=== PATIENT | female | born 1965 | race Caucasian/White ===

== ENCOUNTER 2016-08-13 12:22 | Observation (INO) | payer MEDICARE, OTHER ==
[2016-08-13] MEDS ORDERED: KETOROLAC 30 MG/ML 1 ML VIAL IVP STA (12:58)
--- NOTE | 2016-08-13 13:14 | ED ---
Chest Pain HPI - General Chief Complaint: Chest Pain Stated Complaint: Chest Pain Time Seen by Provider: 08/13/16 12:41 Source: patient, RN notes reviewed Mode of arrival: wheelchair Limitations: no limitations - History of Present Illness Initial Comments: This is a 51-year-old female with a history of PVCs who presents with complaints of symptoms of been going on for about 2 weeks getting progressively worse. She states she initially was expressing flashes dizziness frontal like she might pass out she thought was related to her change of . She states however she started developing anterior chest pain some pain to her back neck and jaw and now pain in her left arm at times. She's had sweating with it last night and this morning. The pain she has is achy mid sternal moderate in severity. Currently she is pain-free except for the mid sternum where she has some reproducible pain to palpation which is different than the above. Physical slight cough she is a smoker though she is trying to quit she smokes 2 cigarettes a day at this time. She has no known heart or lung disease or is a family history of heart disease and hypertension. We did have a long conversation regarding risks and benefits of stopping smoking the whole episode lasted 3.1 minutes MD Complaint: chest pain, other - Related Data Home Medications Medication Instructions Recorded Confirmed HYDROcodone/APAP 7.5-325MG [[place] 1 tab PO Q6HR PRN 09/25/13 08/13/16 7.5] Atenolol 25 mg PO HS 06/09/16 08/13/16 Ergocalciferol [Vitamin D2] 50,000 unit PO TH 08/13/16 08/13/16 Gabapentin [Neurontin] 100 mg PO HS 08/13/16 08/13/16 Allergies Allergy/AdvReac Type Severity Reaction Status Date / Time No Known Allergies Allergy Verified 08/13/16 13:08 Review of Systems ROS Statement: Those systems with pertinent positive or pertinent negative responses have been documented in the HPI. ROS Other: All systems not noted in ROS Statement are negative. EKG Findings - EKG Results: EKG: interpreted by WALTER MIGUEL, sinus rhythm, normal axis, normal QRS, normal ST/ T, no acute changes (Sinus rhythm with a rate of 78. Interval 162 QRS duration 80 daily since QTC of 34/[address]-T wave changes.) Past Medical History Past Medical History: Fibromyalgia, GERD/Reflux, GI Bleed Additional Past Medical History / Comment(s): Recent heartburn and blood to stool, hx of colon polyps. Hx PVCs and palpatations. History of Any Multi-Drug Resistant Organisms: None Reported Past Surgical History: Back Surgery, Cholecystectomy, Orthopedic Surgery, Uterine Ablation Additional Past Surgical History / Comment(s): Hx colonoscopy. Back surgery x 2 with cage, plates, screws. Novasure procedure. Past Anesthesia/Blood Transfusion Reactions: Postoperative Nausea & Vomiting ( PONV) Past Psychological History: Anxiety Smoking Status: Current every day smoker Past Alcohol Use History: None Reported Additional Past Alcohol Use History / Comment(s): Started smoking 1982 to current. Smokes less that 1/2 ppd. Past Drug Use History: None Reported - Past Family History Father Family Medical History: Cancer Additional Family Medical History / Comment(s): Prostate and lung CA. General Exam - General Exam Comments Initial Comments: This is a well up well-nourished awake alert oriented history female Limitations: no limitations General appearance: alert, anxious Head exam: Present: atraumatic, normocephalic, normal inspection Eye exam: Present: normal appearance, PERRL, EOMI. Absent: scleral icterus, conjunctival injection, periorbital swelling ENT exam: Present: normal exam, mucous membranes moist Neck exam: Present: normal inspection. Absent: tenderness, meningismus, lymphadenopathy Respiratory exam: Present: normal lung sounds bilaterally, chest wall tenderness. Absent: respiratory distress, wheezes, rales, rhonchi, stridor Cardiovascular Exam: Present: regular rate, normal rhythm, normal heart sounds. Absent: systolic murmur, diastolic murmur, rubs, gallop, clicks GI/Abdominal exam: Present: soft, normal bowel sounds. Absent: distended, tenderness, guarding, rebound, rigid Extremities exam: Present: normal inspection, full ROM, normal capillary refill. Absent: tenderness, pedal edema, joint swelling, calf tenderness Back exam: Present: normal inspection Neurological exam: Present: alert, oriented X3, CN II-XII intact Psychiatric exam: Present: normal affect, normal mood Skin exam: Present: warm, dry, intact, normal color. 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 Patient has had recurrent pain she'll be admitted for evaluation by cardiology. Disposition Clinical Impression: Atypical chest pain, Chest pain, Unstable angina pectoris Disposition: ADMITTED IP TO THIS HOSP Condition: Stable
[2016-08-13 13:21] LABS: Basophils # (A) 0.1 k/uL (0-0.2); Basophils % (A) 1 %; CH 31.6; CHCM 34.9; Eosinophils # (A) 0.2 k/uL (0-0.7); Eosinophils % (A) 2 %; HCT 46.3 % (34.0-46.0); HDW 2.51; HGB 15.9 gm/dL (11.4-16.0); Luc # (Auto) 0.28; Luc % (Auto) 3; Lymphocytes # (A) 2.5 k/uL (1.0-4.8); Lymphocytes % (A) 28 %; MCH 31.2 pg (25.0-35.0); MCHC 34.3 g/dL (31.0-37.0); Mean Platelet Volume 6.9; Monocytes # (A) 0.5 k/uL (0-1.0); Monocytes % (A) 6 %; Neutrophils # (A) 5.3 k/uL (1.3-7.7); Neutrophils % (A) 60 %; RBC 5.09 m/uL (3.80-5.40); RDW 12.5 % (11.5-15.5); WBC 8.9 k/uL (3.8-10.6); WBC (Perox) 8.75
[2016-08-13 13:31] LABS: ALT 25 U/L (9-52); AST 17 U/L (14-36); Alkaline Phosphatase 73 U/L (38-126); Amylase 55 U/L (30-110); Anion Gap 10 mmol/L; Blood Urea Nitrogen 20 mg/dL (7-17); Calcium 9.8 mg/dL (8.4-10.2); Carbon Dioxide 26 mmol/L (22-30); Chloride 103 mmol/L (98-107); Glucose 104 mg/dL (74-99); Magnesium 1.9 mg/dL (1.6-2.3); Non-African American GFR(MDRD) >60 (>60 ml/min/1.73 sqM); Potassium 4.4 mmol/L (3.5-5.1); Sodium 139 mmol/L (137-145); Total Bilirubin 0.7 mg/dL (0.2-1.3); Total Protein 7.7 g/dL (6.3-8.2)
[2016-08-13 13:32] LABS: Partial Thromboplastin Time 23.6 sec (22.0-30.0); Prothrombin Time 10.5 sec (9.0-12.0)
[2016-08-13 13:45] LABS: Creatine Kinase 77 U/L (30-135)
--- NOTE | 2016-08-13 13:50 | XR ---
EXAMINATION TYPE: XR chest 2V DATE OF EXAM: 08/13/2016 1:27 PM COMPARISON: 12/05/2013 INDICATION: Chest pain TECHNIQUE: Frontal and lateral views reveal the chest were obtained. The frontal chest is labeled dec ubitus. FINDINGS: The heart size is normal. The pulmonary vasculature is normal. The lungs are clear. No free-flowing pleural effusions are identified. IMPRESSION: 1. No acute pulmonary process.
[2016-08-13 13:57] LABS: Creatine Kinase MB 0.4 ng/mL (0.0-2.4); Troponin I <0.012 ng/mL (0.000-0.034)
[2016-08-13] MEDS ORDERED: NITROGLYCERIN SL TABS 0.4 MG TAB SUBLINGUAL PRN (16:34)
[2016-08-13] MEDS ORDERED: HEPARIN SODIUM,PORCINE 5,000 UNIT/ML 1 ML VIAL IV ONE (16:34)
[2016-08-13] MEDS ORDERED: SODIUM CHLORIDE 0.9% 1,000 ML IV SCH (16:45)
[2016-08-13] MEDS ORDERED: HEPARIN SODIUM,PORCINE/D5W PMX 25,000 UNIT in DEXTROSE/WATER 1 500ML.BAG IV SCH (16:45)
[2016-08-13] MEDS: HYDROcodone/APAP 7.5-325MG 1 EACH TAB PO PRN ×2 (17:28→22:43)
[2016-08-13] MEDS ORDERED: ERGOCALCIFEROL 50,000 UNIT CAP PO SCH (18:00)
[2016-08-13] MEDS ORDERED: NICOTINE 21MG/24HR PATCH TRANSDERM STA (19:42)
[2016-08-13 20:41] LABS: Creatine Kinase 69 U/L (30-135)
[2016-08-13 20:54] LABS: Creatine Kinase MB 0.3 ng/mL (0.0-2.4); Troponin I <0.012 ng/mL (0.000-0.034)
[2016-08-13] MEDS ORDERED: GABAPENTIN 100 MG CAP PO SCH (21:00)
[2016-08-13] MEDS ORDERED: ATENOLOL 25 MG TAB PO SCH (21:00)
[2016-08-13] MEDS: NITROGLYCERIN OINT 1 INCH/GM PACKET TOPICAL SCH ×2 (21:12→21:13)
[2016-08-14 04:55] LABS: Creatine Kinase 59 U/L (30-135); Creatine Kinase MB 0.3 ng/mL (0.0-2.4); Troponin I <0.012 ng/mL (0.000-0.034)
[2016-08-14] MEDS ORDERED: HEPARIN SODIUM,PORCINE 5,000 UNIT/ML 1 ML VIAL IV PRN (05:24)
[2016-08-14] MEDS: NITROGLYCERIN OINT 1 INCH/GM PACKET TOPICAL SCH ×2 (05:42→13:38)
[2016-08-14 06:17] LABS: Cholesterol 149 mg/dL (<200); HDL Cholesterol 48 mg/dL (40-60); Triglycerides 168 mg/dL (<150)
[2016-08-14] MEDS: HYDROcodone/APAP 7.5-325MG 1 EACH TAB PO PRN (07:36)
[2016-08-14] MEDS ORDERED: ASPIRIN 325 MG TAB PO SCH (09:00)
--- NOTE | 2016-08-14 11:39 | CONS ---
DATE OF CONSULTATION: This is a 51-year-old lady a patient who sees Dr. Torres in the outpatient setting, came into the hospital with episodes of what she described as a sensation of some warm feeling all over with some pain that started in the left anterior chest and radiated to the back sharp in nature, lasted a few seconds. The quality of the pain is very atypical. She also feels that she is having some menopausal symptoms and has been having night sweats, sometimes hot flashes. She is also trying to quit smoking at the same time. She was known to have some isolated PVCs on evaluation by Dr. Torres placed on atenolol and this has been stable. However, in the last 5 days she has noted an increase in sensation of palpitations. She feels as if her heart is racing fast, spontaneously that lasted a few minutes and then goes away. Her pain in the chest is very sharp in nature, atypical, some radiation to the left scapular area. There was no diaphoresis. She had a Lexiscan stress test that was performed recently and a 24-hour DCG that revealed PVCs. Lexiscan stress test did not reveal any ischemia. This was performed in May of 2016. Past medical history remarkable for: 1. Palpitations, PVCs, for which she is on atenolol. 2. Atypical chest pain with a negative stress test performed within the last 3 to 4 months. She also had an echocardiogram that was normal with mild concentric LVH and normal PA pressures. Medications at home include hydrocodone, gabapentin and vitamin supplements. ALLERGIES: None. REVIEW OF SYSTEMS: Unremarkable other than above-mentioned facts. On examination, blood pressure is 110/70, pulse rate 70 per minute, regular. HEENT: Unremarkable. Fundus was not examined by me. Neck is supple. No JVD. I do not hear a carotid bruit. There is no thyromegaly. Heart exam reveals S1 and S2 heard normally without a rub, murmur or gallop. Lungs are clear. ABDOMEN: Soft, nontender. Lower extremities reveal normal pulses. No edema. Central nervous system is normal. EKG revealed sinus mechanism. No acute changes. Laboratory data revealed unremarkable troponins. IMPRESSION: 1. Palpitations with increase in frequency in the last 4 to 5 days. Patient has a history of premature ventricular contractions. No arrhythmia was seen on the monitor today. 2. Atypical chest pain with a negative stress test within the last 3 to 4 months. RECOMMENDATIONS: I am recommending that we discontinue IV, put a Hep-Lock, increase activity, and she can be discharged with a 2-week event monitor and see Dr. Melissa Bailey after that in the office. I discussed my thoughts in detail with the patient. Thank you very much for the consult.
[2016-08-14 11:42] VITALS: BP 103/59; PULSE 68; RESP 18; TEMP 98
--- NOTE | 2016-08-15 10:18 | HP ---
DATE OF ADMISSION: History and physical and discharge summary REASON FOR ADMISSION: Palpitation and chest pain. HISTORY OF PRESENT ILLNESS: This is a 51-year-old female is known to Dr. Torres, has had some issues in regards to palpitations. Apparently underwent multiple studies and was noted to have PVCs. Thereafter was placed on atenolol 25 mg and has been stable for the last few months. However, over the last few weeks, patient has been noting to have multiple episodes of palpitations. These palpitations were initially associated with episodes of sweating and diffuse tiredness, thereafter. Hence, the patient thought these were postmenopausal symptoms and ignored them. This has been happening over the last 2 weeks. Last night patient apparently has had an episode while she was cleaning where she noted palpitations initially and thereafter, noted diaphoresis and chest pressure diffusely. The patient thereafter came to the hospital for ongoing care. Patient underwent a Lexiscan in June, which was negative for reversible ischemia. EKG did not reveal ST-T wave changes. At the time of my evaluation, patient states that she is very anxious, has had an issue with tremors all her life. States that her anxiety has something to do with her current issue as well. Past medical history includes: 1. Ventricular ectopy. 2. Anxiety. 3. Essential tremor. 4. Peripheral neuropathy. 5. Chronic pain. MEDICATIONS: 1. Hydrocodone. 2. Gabapentin. 3. Atenolol. 4. Vitamin supplements. ALLERGIES: None. In regards to medications, they were reviewed and appropriately reconciled. REVIEW OF SYSTEMS: Fourteen-point review of systems was done; none pertinent other than mentioned above. SOCIAL HISTORY: Remote history of smoking. Denies having any illicit drug use or alcohol use. FAMILY HISTORY: Premature heart disease is reported in the family. PAST SURGICAL HISTORY: None reported. PHYSICAL EXAMINATION: VITAL SIGNS: Temperature is 98, heart rate is 68, respiratory rate is 18, blood pressure 102/59. Saturating 97% on room air. GENERALLY: Patient appears to be alert, oriented x3. HEENT: The pupils are equal and reactive to light and accommodation. HEART: S1, S2 present. No murmur appreciated. LUNGS: Good air entry. No wheezing or rhonchi noted. ABDOMINAL EXAM: Soft, nontender, no organomegaly appreciated. GENITOURINARY: No Cortes in place. EXTREMITIES: Pulses can be palpated distally. Denies any tenderness on gross palpation. SKIN: On a gross skin exam does not appear to have any purpura or any skin rashes that were noted. NEUROLOGICALLY: No focal motor or sensory deficits noted. There is essential tremor that is appreciated bilaterally. Laboratory data includes hemoglobin 15.9, hematocrit 46.3, platelets of 274. D-dimer is 0.18. Sodium 139, potassium 4.4, chloride 102, bicarb 26, BUN 20, creatinine 0.61. Cardiac enzymes x3 were less than 0.012. TSH was 2.3. ASSESSMENT AND PLAN: 1. Atypical chest pain. 2. Palpitations. 3. History of ventricular ectopy. 4. Anxiety. 5. Remote history of tobacco use. 6. Essential tremor. PLAN: Patient was made to ambulate, states that she is improved. Patient's heart rate during my examination is ranging anywhere from 70s to high 80s per minute. After discussion patient's atenolol will be increased to 25 mg b.i.d. Patient is recommended to undergo a two-week monitor by the scagliola mechanic, Patient is to follow with Dr. Torres. In regards to her postmenopausal symptoms, I did discuss different options including even hormone replacement for short duration or medications like Effexor which are off label. However, this requires monitoring and patient is to make this decision following with Dr. Carmela Villaseñor. Follow up appointments are with Dr. Torres and Dr. Carmela Villaseñor. Medication changes were increase of atenolol to 25 mg p.o. b.i.d. Patient is discharged home in a stable condition. He is to follow up for a Holter monitor.
== END 2016-08-14 16:57 | disposition home or self-care (01) ==
LOC: EC 12:22 → 3OBS 16:38
PROVIDERS: ADMIT Internal Medicine; ATTEND Internal Medicine
DX: R07.89 Other chest pain (principal); R61 Generalized hyperhidrosis; I49.3 Ventricular premature depolarization; Z79.899 Other long term (current) drug therapy; M79.7 Fibromyalgia; F41.9 Anxiety disorder, unspecified; F17.210 Nicotine dependence, cigarettes, uncomplicated; G25.0 Essential tremor; G89.29 Other chronic pain; G62.9 Polyneuropathy, unspecified; Z82.49 Family history of ischemic heart disease and other diseases of the circulatory system
CPT/HCPCS: 96376; 96375; 96366 ×2; 96365; 99285; 36415; 93005; 85379; 83880; 80061; 80053; 84443; 82150; 82550 ×2; 82553 ×2; 83690; 83735; 84484 ×2; 85025; 85610; 85730 ×2; 71020; G0378 ×2; S4990; J1644 ×3; J1885

== ENCOUNTER 2016-08-22 06:55 | Emergency (ER) | payer MEDICARE, OTHER ==
--- NOTE | 2016-08-22 08:09 | ED ---
Female Urogenital HPI - General Chief complaint: Urogenital Stated complaint: urogenital Time Seen by Provider: 08/22/16 07:40 Source: patient, RN notes reviewed Mode of arrival: ambulatory Limitations: no limitations - History of Present Illness Initial comments: This is a 51-year-old female who presents with complaints of hot flashes the been continuous since about 11:00 last evening which lasted till 4 5:00 this morning also urinary frequency she's gone multiple times today. She also now complains some right lower quadrant abdominal pain that feels sharp and achy in nature and is 5-6/10 severity. She does have a history of ovarian cyst she is scheduled for a pelvic ultrasound and abdominal ultrasound this coming week. She states she would sweat a lot last evening and then had sweats and then feel chilled. She denies any earache sore throat rhinorrhea no cough or phlegm production. She has had her gallbladder removed but still has her appendix. Additionally she states she was just in the hospital this past week prior to her discharge for the workup of chest pain she complained of urinary odor and she was given a prescription of Bactrim for a total of 6 pills which she completed 5 days ago. She denies any burning with urination just frequency. Patient also complains of pain going from her right groin down to the anterior proximal right thigh that is intermittent. MD Complaint: other - Related Data Home Medications Medication Instructions Recorded Confirmed HYDROcodone/APAP 7.5-325MG [[place] 1 tab PO Q6HR PRN 09/25/13 08/22/16 7.5-325] Ergocalciferol [Vitamin D2 50,000 unit PO TH 08/13/16 08/22/16 (DRISDOL)] Gabapentin [Neurontin] 100 mg PO HS 08/13/16 08/22/16 Previous Rx's Medication Instructions Recorded Atenolol 25 mg PO BID #30 tablet 08/14/16 Cephalexin [Keflex] 500 mg PO Q6HR #40 cap 08/22/16 Ibuprofen [Motrin] 600 mg PO Q6HR PRN #20 tab 08/22/16 Oxybutynin Chloride [Ditropan] 2.5 mg PO BID #10 tab 08/22/16 Allergies Allergy/AdvReac Type Severity Reaction Status Date / Time No Known Allergies Allergy Verified 08/22/16 07:05 Review of Systems ROS Statement: Those systems with pertinent positive or pertinent negative responses have been documented in the HPI. ROS Other: All systems not noted in ROS Statement are negative. Past Medical History Past Medical History: Fibromyalgia, GERD/Reflux, GI Bleed, Hypertension Additional Past Medical History / Comment(s): hx of colon polyps. Hx PVCs and palpatations takes atenolol".kidney stones, tremors,anxiety ovarian cysts History of Any Multi-Drug Resistant Organisms: None Reported Past Surgical History: Back Surgery, Cholecystectomy, Orthopedic Surgery, Tonsillectomy, Uterine Ablation Additional Past Surgical History / Comment(s): Hx egd/colonoscopy.tubes in ears as child, Back surgery x 2 with cage, plates, screws. Novasure endometrial ablation Past Anesthesia/Blood Transfusion Reactions: Postoperative Nausea & Vomiting ( PONV) Past Psychological History: Anxiety Additional Psychological History / Comment(s): pt lives in house along w/ daughter and 2 cats. has 6 steps into home.no outside services. uses a cane as needed. pt used to do factory work but currently on disability. Smoking Status: Former smoker Past Alcohol Use History: None Reported Additional Past Alcohol Use History / Comment(s): Started smoking 1980(age 16) to current. was smoking 1ppd has decreased to 3-4 cig per day. Past Drug Use History: None Reported - Past Family History Father Family Medical History: Cancer, Hypertension Additional Family Medical History / Comment(s): Prostate and lung CA. Mother Family Medical History: COPD, CVA/TIA Additional Family Medical History / Comment(s): ms, "heart problems" General Exam - General Exam Comments Initial Comments: This is a well-developed well-nourished awake alert oriented history female Limitations: no limitations General appearance: alert, in no apparent distress Head exam: Present: atraumatic, normocephalic, normal inspection Eye exam: Present: normal appearance, PERRL, EOMI. Absent: scleral icterus, conjunctival injection, periorbital swelling ENT exam: Present: normal exam, mucous membranes moist Neck exam: Present: normal inspection. Absent: tenderness, meningismus, lymphadenopathy Respiratory exam: Present: normal lung sounds bilaterally. Absent: respiratory distress, wheezes, rales, rhonchi, stridor Cardiovascular Exam: Present: regular rate, normal rhythm, normal heart sounds. Absent: systolic murmur, diastolic murmur, rubs, gallop, clicks GI/Abdominal exam: Present: soft, tenderness (Mild right lower quadrant tenderness palpation at McBurney's point no guarding or rebound.), normal bowel sounds. Absent: distended, guarding, rebound, rigid Rectal exam: Present: deferred Extremities exam: Present: normal inspection, full ROM, normal capillary refill , other (Examination of the inguinal region reveals no tenderness on palpation) . Absent: tenderness, pedal edema, joint swelling, calf tenderness Back exam: Present: normal inspection Neurological exam: Present: alert, oriented X3, CN II-XII intact Psychiatric exam: Present: normal affect, normal mood Skin exam: Present: warm, dry, intact, normal color. Absent: rash Course Vital Signs 08/22/16 08/22/16 07:01 07:41 Temperature 97.6 F 98.4 F Pulse Rate 87 71 Respiratory 18 18 Rate Blood Pressure 132/89 O2 Sat by Pulse 97 96 Oximetry Medical Decision Making - Medical Decision Making I did discuss findings with the patient she does have some symptoms consistent with menopause also the urinary frequency there is no evidence of a UTI at this time though cultures will be sent this may represent an overactive bladder. - Lab Data Result diagrams: 08/22/16 07:38 08/22/16 07:38 Lab Results 08/22/16 08/22/16 08/22/16 Range/Units 07:38 07:38 07:38 WBC 7.6 (3.8-10.6) k/uL RBC 4.69 (3.80-5.40) m/uL Hgb 14.8 (11.4-16.0) gm/dL Hct 43.2 (34.0-46.0) % MCV 92.0 (80.0-100.0) fL MCH 31.6 (25.0-35.0) pg MCHC 34.3 (31.0-37.0) g/dL RDW 12.6 (11.5-15.5) % Plt Count 267 (150-450) k/uL Neutrophils % 56 % Lymphocytes % 32 % Monocytes % 5 % Eosinophils % 3 % Basophils % 1 % Neutrophils # 4.2 (1.3-7.7) k/uL Lymphocytes # 2.4 (1.0-4.8) k/uL Monocytes # 0.3 (0-1.0) k/uL Eosinophils # 0.3 (0-0.7) k/uL Basophils # 0.1 (0-0.2) k/uL Sodium 140 (137-145) mmol/L Potassium 4.4 (3.5-5.1) mmol/L Chloride 106 (98-107) mmol/L Carbon Dioxide 26 (22-30) mmol/L Anion Gap 8 mmol/L BUN 15 (7-17) mg/dL Creatinine 0.56 (0.52-1.04) mg/dL Est GFR (MDRD) Af Amer >60 (>60 ml/min/1.73 sqM) Est GFR (MDRD) Non-Af >60 (>60 ml/min/1.73 sqM) Glucose 114 H (74-99) mg/dL Calcium 9.8 (8.4-10.2) mg/dL Magnesium 2.0 (1.6-2.3) mg/dL Total Bilirubin 0.6 (0.2-1.3) mg/dL AST 21 (14-36) U/L ALT 37 (9-52) U/L Alkaline Phosphatase 70 (38-126) U/L Total Protein 7.2 (6.3-8.2) g/dL Albumin 4.1 (3.5-5.0) g/dL Amylase 60 (30-110) U/L Lipase 91 (23-300) U/L TSH 3.250 (0.465-4.680) mIU/L Urine Color Yellow Urine Appearance Cloudy H (Clear) Urine pH 5.0 (5.0-8.0) Ur Specific [place] 1.014 (1.001-1.035) Urine Protein Negative (Negative) Urine Glucose (UA) Negative (Negative) Urine Ketones Negative (Negative) Urine Blood Small H (Negative) Urine Nitrite Negative (Negative) Urine Bilirubin Negative (Negative) Urine Urobilinogen <2.0 (<2.0) mg/dL Ur Leukocyte Esterase Moderate H (Negative) Urine RBC 1 (0-5) /hpf Urine WBC 4 (0-5) /hpf Ur Squamous Epith Cells 18 H (0-4) /hpf Urine Bacteria Rare H (None) /hpf Urine Mucus Occasional H (None) /hpf Urine HCG, Qual (Not Detectd) 08/22/16 Range/Units 07:38 WBC (3.8-10.6) k/uL RBC (3.80-5.40) m/uL Hgb (11.4-16.0) gm/dL Hct (34.0-46.0) % MCV (80.0-100.0) fL MCH (25.0-35.0) pg MCHC (31.0-37.0) g/dL RDW (11.5-15.5) % Plt Count (150-450) k/uL Neutrophils % % Lymphocytes % % Monocytes % % Eosinophils % % Basophils % % Neutrophils # (1.3-7.7) k/uL Lymphocytes # (1.0-4.8) k/uL Monocytes # (0-1.0) k/uL Eosinophils # (0-0.7) k/uL Basophils # (0-0.2) k/uL Sodium (137-145) mmol/L Potassium (3.5-5.1) mmol/L Chloride (98-107) mmol/L Carbon Dioxide (22-30) mmol/L Anion Gap mmol/L BUN (7-17) mg/dL Creatinine (0.52-1.04) mg/dL Est GFR (MDRD) Af Amer (>60 ml/min/1.73 sqM) Est GFR (MDRD) Non-Af (>60 ml/min/1.73 sqM) Glucose (74-99) mg/dL Calcium (8.4-10.2) mg/dL Magnesium (1.6-2.3) mg/dL Total Bilirubin (0.2-1.3) mg/dL AST (14-36) U/L ALT (9-52) U/L Alkaline Phosphatase (38-126) U/L Total Protein (6.3-8.2) g/dL Albumin (3.5-5.0) g/dL Amylase (30-110) U/L Lipase (23-300) U/L TSH (0.465-4.680) mIU/L Urine Color Urine Appearance (Clear) Urine pH (5.0-8.0) Ur Specific [place] (1.001-1.035) Urine Protein (Negative) Urine Glucose (UA) (Negative) Urine Ketones (Negative) Urine Blood (Negative) Urine Nitrite (Negative) Urine Bilirubin (Negative) Urine Urobilinogen (<2.0) mg/dL Ur Leukocyte Esterase (Negative) Urine RBC (0-5) /hpf Urine WBC (0-5) /hpf Ur Squamous Epith Cells (0-4) /hpf Urine Bacteria (None) /hpf Urine Mucus (None) /hpf Urine HCG, Qual Not Detected (Not Detectd) - Radiology Data Radiology results: report reviewed (I did review the imaging and reports no acute findings. There is evidence of kidney stones with no evidence of obstruction), image reviewed Disposition Clinical Impression: Urinary frequency, Perimenopause Disposition: HOME SELF-CARE Condition: Good Instructions: Dysuria (ED), Menopause (ED) Prescriptions: Cephalexin [Keflex] 500 mg PO Q6HR #40 cap Ibuprofen [Motrin] 600 mg PO Q6HR PRN #20 tab PRN Reason: Pain Oxybutynin Chloride [Ditropan] 2.5 mg PO BID #10 tab
[2016-08-22 08:12] VITALS: PULSE 71; RESP 18
[2016-08-22 08:24] LABS: Basophils # (A) 0.1 k/uL (0-0.2); Basophils % (A) 1 %; CH 31.9; CHCM 34.8; Eosinophils # (A) 0.3 k/uL (0-0.7); Eosinophils % (A) 3 %; HCT 43.2 % (34.0-46.0); HDW 2.51; HGB 14.8 gm/dL (11.4-16.0); Luc # (Auto) 0.25; Luc % (Auto) 3; Lymphocytes # (A) 2.4 k/uL (1.0-4.8); Lymphocytes % (A) 32 %; MCH 31.6 pg (25.0-35.0); MCHC 34.3 g/dL (31.0-37.0); Mean Platelet Volume 6.7; Monocytes # (A) 0.3 k/uL (0-1.0); Monocytes % (A) 5 %; Neutrophils # (A) 4.2 k/uL (1.3-7.7); Neutrophils % (A) 56 %; RBC 4.69 m/uL (3.80-5.40); RDW 12.6 % (11.5-15.5); WBC 7.6 k/uL (3.8-10.6); WBC (Perox) 7.16
[2016-08-22 08:28] LABS: ALT 37 U/L (9-52); AST 21 U/L (14-36); Alkaline Phosphatase 70 U/L (38-126); Amylase 60 U/L (30-110); Anion Gap 8 mmol/L; Blood Urea Nitrogen 15 mg/dL (7-17); Calcium 9.8 mg/dL (8.4-10.2); Carbon Dioxide 26 mmol/L (22-30); Chloride 106 mmol/L (98-107); Glucose 114 mg/dL (74-99); Non-African American GFR(MDRD) >60 (>60 ml/min/1.73 sqM); Potassium 4.4 mmol/L (3.5-5.1); Sodium 140 mmol/L (137-145); Total Bilirubin 0.6 mg/dL (0.2-1.3); Total Protein 7.2 g/dL (6.3-8.2)
[2016-08-22 08:45] LABS: Appearance,Urine Cloudy (Clear); Bacteria,Urine Rare /hpf; Bilirubin,Urine Negative (Negative); Glucose,Urine (UA) Negative (Negative); Ketones,Urine Negative (Negative); Leukocyte Esterase,Urine Moderate (Negative); Mucus,Urine Occasional /hpf; Nitrite,Urine Negative (Negative); Particle Count 11674; Protein,Urine Negative (Negative); RBC,Urine 1 /hpf (0-5); Specific Gravity,Urine 1.014 (1.001-1.035); Squamous Epithelial Cell,Urine 18 /hpf (0-4); UA Billing (MACRO vs. MICRO) MICRO; Urobilinogen,Urine <2.0 mg/dL (<2.0); WBC,Urine 4 /hpf (0-5)
--- NOTE | 2016-08-22 10:00 | XR ---
EXAMINATION TYPE: XR chest 2V DATE OF EXAM: 08/22/2016 8:28 AM COMPARISON: 08/13/2016 INDICATION: Abdomen pain short of breath TECHNIQUE: Single frontal view of the chest is obtained. FINDINGS: The heart size is normal. The pulmonary vasculature is normal. The lungs are clear. IMPRESSION: 1. No acute pulmonary process.
--- NOTE | 2016-08-22 10:01 | XR ---
EXAMINATION TYPE: XR KUB DATE OF EXAM: 08/22/2016 8:28 AM COMPARISON: NONE INDICATION: Abdomen pain TECHNIQUE: Single view abdomen FINDINGS: There is a nonspecific bowel gas pattern. Air is within small bowel loops as well as the colon. Psoas margins are normal. No organomegaly is present. Postsurgical changes are in the lower lumbar spine. No suspicious calcifications are evident. IMPRESSION: 1. Nonspecific abdomen.
--- NOTE | 2016-08-22 10:13 | CT ---
EXAMINATION TYPE: CT abdomen pelvis wo con DATE OF EXAM: 08/22/2016 9:18 AM COMPARISON: NONE INDICATION: Urgency and frequency in urination with hot flashes DLP: 552.9 mGycm, Automated exposure control for dose reduction was used. CONTRAST: None Study performed without Oral Contrast TECHNIQUE: Axial images were obtained from above the diaphragm to the pubic rami in the axial plane a t 5 mm thick sections. Reconstructed images are reviewed on the computer in the coronal plane. FINDINGS: Limited CT sections are obtained the lung bases. The lung bases are clear. CT ABDOMEN: Liver: Normal Spleen: Normal Pancreas: Normal Adrenal glands: The adrenal glands are normal. Gallbladder: Not identified Kidneys: No masses are evident. No hydronephrosis is present. No cysts are present. Multiple renal stones are present bilaterally. On the left the largest at the inferior pole measuring 0.7 cm. On th e right the largest is at the mid to inferior pole measuring 0.5 cm. Additional 0.3, 0.2 and 0.2 cm. Aorta: Normal Inferior vena cava: Normal. CT PELVIS: Loops of bowel within the abdomen and pelvis are normal. Studies without oral contrast limiting e valuation. Fecal debris is within the distal colon. Appendix: Normal as visualized. Urinary bladder: Normal. Genitourinary structures: Uterus is unremarkable. Adnexal regions are normal. No free fluid is within the pelvis. Osseous structures: No suspicious lytic or sclerotic lesions. Postsurgical changes are within the low er lumbar spine. IMPRESSIONS: 1. Nonobstructing bilateral renal stones
[2016-08-22 11:59] VITALS: BP 125/64; TEMP 97.9
== END 2016-08-22 12:03 | disposition home or self-care (01) ==
LOC: EC 06:55
DX: R35.0 Frequency of micturition (principal); N95.9 Unspecified menopausal and perimenopausal disorder; R10.30 Lower abdominal pain, unspecified; M79.651 Pain in right thigh; Z87.891 Personal history of nicotine dependence; Z79.899 Other long term (current) drug therapy; Z98.890 Other specified postprocedural states
CPT/HCPCS: 36415; 71020; 74000; 74176; 80053; 81001; 81025; 82150; 83690; 83735; 84443; 85025; 87086; 99284

== ENCOUNTER → 2016-08-25 | Outpatient (CLI) | payer MEDICARE, OTHER ==
--- NOTE | 2016-08-25 11:16 | US ---
EXAMINATION TYPE: US abdomen complete DATE OF EXAM: 08/25/2016 10:07 AM COMPARISON: CT 2017 CLINICAL HISTORY: R93.5 ABN COMPUTED TOMOGRAPHY OF ABD AND PELVIS. Renal stones, pelvic painOrder sta zoran possible liver cysts as patient stated had CT at [facility] in July 2016. EXAM MEASUREMENTS: Liver Length: 18.5 cm Gallbladder Wall: surgically removed CBD: 0.7 cm Spleen: 10.0 cm Right Kidney: 11.7 x 6.8 x 5.3 cm Left Kidney: 12.6 x 6.2 x 5.7 cm Pancreas: wnl Liver: wnl Gallbladder: surgically removed CBD: wnl Spleen: wnl Right Kidney: upper pole cyst = 1.5 x 1.3 x 1.4cm and lower pole shadowing calcification (cluster) = 0.8 x 0.8 x 0.7cm Left Kidney: lower pole shadowing calcification = 0.6 x 0.4 x 0.2cm Upper IVC: wnl Abd Aorta: wnl The liver is homogenous. The intrahepatic portion of the IVC and proximal abdominal aorta are within normal limits. Common bile duct is unremarkable. The visualized portions of the pancreas are homog enous. The spleen is unremarkable. Kidneys are symmetric and free of hydronephrosis. . Left-sided r enal calculus noted. Additional calculi lower pole right kidney. Simple cyst upper pole right kidney. IMPRESSION: 1. Bilateral nonobstructing nephrolithiasis. 2. Simple cyst right kidney.
--- NOTE | 2016-08-25 11:19 | US ---
EXAMINATION TYPE: US pelvic complete DATE OF EXAM: 08/25/2016 10:18 AM COMPARISON: CT 2016 at [facility] and CT July 2016 at [facility] CLINICAL HISTORY: R93.5 ABN COMPUTED TOMOGRAPHY OF ABD AND PELVIS. Left ovarian cyst, cysts in CX; en dometrial ablation 2012 TECHNIQUE: Transabdominal (TA) Date of LMP: 2012 EXAM MEASUREMENTS: Uterus: 9.2 x 5.8 x 3.7 cm Endometrial Stripe: 0.4 cm upper remnant Right Ovary: 2.3 x 1.5 x 1.6 cm Left Ovary: 3.1 x 2.0 x 2.2 cm 1. Uterus: Anteverted Multiple large Nabothian cysts in CX with largest = 1.4 x 1.6 x 1.3cm 2. Endometrium: possible small remnant upper endo noted as hyperechoic line 3. Right Ovary: small follicles 4. Left Ovary: small follicles Spectral, color and waveform Doppler imaging shows good arterial and venous flow within the ovaries ; there is no evidence for ovarian torsion. 5. Bilateral Adnexa: wnl 6. Posterior cul-de-sac: wnl IMPRESSION: 1. Small ovarian follicles. 2. Cervical nabothian cysts.
--- NOTE | 2016-08-27 13:35 | MM ---
Reason for exam: screening (asymptomatic). Last mammogram was performed 1 year ago. History: Family history of breast cancer in paternal aunt at age 61 and breast cancer in paternal cousin at age 42. Benign US left guided mammotome of the left breast, April 17, 2008. Physical Findings: A clinical breast exam by your physician is recommended on an annual basis and results should be correlated with mammographic findings. MG 3D Screening Mammo W/Cad Bilateral CC and MLO view(s) were taken. Prior study comparison: August 22, 2015, bilateral MG 3d diag mammo w/cad [place]. June 28, 2014, right breast MG diagnostic mammo RT w CAD. Finding: There is a typically benign 18 mm circumscribed oval mass located 4 cm from the nipple in the upper outer quadrant, middle position of the left breast. No significant changes in finding since August 22, 2015 and June 28, 2014. ASSESSMENT: Benign, BI-RAD 2 RECOMMENDATION: Routine screening mammogram of both breasts in 1 year.
== END ==
LOC: RADUSWWP 09:21
PROVIDERS: ATTEND Family Medicine
DX: Z12.31 Encounter for screening mammogram for malignant neoplasm of breast (principal); N88.8 Other specified noninflammatory disorders of cervix uteri; N20.0 Calculus of kidney; N28.1 Cyst of kidney, acquired
CPT/HCPCS: 77063; 76700; 76856; G0202

== ENCOUNTER → 2016-09-29 | Outpatient (CLI) | payer MEDICARE, OTHER ==
--- NOTE | 2016-09-29 15:23 | MR ---
EXAMINATION TYPE: MR brain wo/w con DATE OF EXAM: 09/29/2016 3:07 PM COMPARISON: Previous study dated 06/23/2014. HISTORY: Dizzy, headaches, Multihance 20 TECHNIQUE: Multiplanar, multiecho imaging of the brain was obtained with and without intravenous adm inistration of 17 mL intravenous MultiHance. FINDINGS: Midline structures are unremarkable. There is a normal craniocervical junction. Echoplanar diffusion imaging is normal. There are normal vascular flow voids. The orbits are normal. There is no evidence of a CP angle mass lesion. There are approximately 14 tiny, subcentimeter lesions in the deep white matter tracts of the cerebra l hemispheres. These increased slightly in number from the previous examination. There is no mass eff ect, midline shift or intracranial blood. Following intravenous administration of gadolinium, I do not see evidence of abnormal enhancement. There is no evidence of a CP angle mass lesion or intracanalicular acoustic schwannoma. IMPRESSION: SLIGHT INCREASE IN THE NUMBER OF SUBCENTIMETERS LESIONS IN THE DEEP WHITE MATTER TRACTS OF THE CEREBR AL HEMISPHERES. THIS AGE GROUP IT WOULD BE DIFFICULT TO EXCLUDE DEMYELINATION ALTHOUGH THE LESIONS AR E NOT ORTHOGONAL TO THE VENTRICLES.
== END | disposition home or self-care (01) ==
LOC: RADMRIMAIN 14:21
PROVIDERS: ATTEND Family Medicine
DX: R90.82 White matter disease, unspecified (principal); R42 Dizziness and giddiness
CPT/HCPCS: 70553; A9577

== ENCOUNTER → 2016-10-23 | Outpatient (CLI) | payer MEDICARE, OTHER ==
--- NOTE | 2016-10-23 10:24 | MM ---
Reason for exam: clinical finding. Last mammogram was performed 2 months ago. History: Patient is postmenopausal. Family history of breast cancer in paternal aunt at age 61 and breast cancer in paternal cousin at age 42. Benign US left guided mammotome of the left breast, April 17, 2008. Physical Findings: Nurse Summary: 2cm nodule in the left breast at 3 o'clock (nurse kp). MG 3D Diag Mammo W/Cad LT CC and MLO view(s) were taken of the left breast. Prior study comparison: August 25, 2016, bilateral MG 3d screening mammo w/cad. August 22, 2015, bilateral MG 3d diag mammo w/cad [facility]. August 22, 2015, bilateral US breast BILAT. The breast tissue is heterogeneously dense. This may lower the sensitivity of mammography. Finding: There is a 20 mm round mass in the outer quadrant, middle position of the left breast. Previous mammotome biopsy in the left breast. There is no discrete abnormality. These results were verbally communicated with the patient and result sheet given to the patient on 10/23/16. ASSESSMENT: Benign, BI-RAD 2 RECOMMENDATION: Return to routine screening mammogram schedule for both breasts. Back on schedule for August 2017. Manage patient on a clinical basis.
--- NOTE | 2016-10-23 10:25 | USB ---
Reason for exam: clinical finding. History: Patient is postmenopausal. Family history of breast cancer in paternal aunt at age 61 and breast cancer in paternal cousin at age 42. Benign US left guided mammotome of the left breast, April 17, 2008. US Breast LT Left breast ultrasound includes all four quadrants, the retroareolar region and axilla. Finding demonstrates a 2.1 x 1.6 x 1.9cm oval, cystic lesion at 2 o'clock at BB, 3cm from nipple and a 0.8 x 0.4 x 1.1cm oval, cystic lesion at 4 o'clock. These results were verbally communicated with the patient and result sheet given to the patient on 10/23/16. ASSESSMENT: Benign, BI-RAD 2 RECOMMENDATION: Return to routine screening mammogram schedule for both breasts. Back on schedule for August 2017. Manage patient on a clinical basis.
== END | disposition home or self-care (01) ==
LOC: RADMAMWWP 08:54
PROVIDERS: ATTEND Family Medicine
DX: N63 Unspecified lump in breast (principal)
CPT/HCPCS: 76641; G0206; G0279

== ENCOUNTER 2016-10-28 21:42 | Emergency (ER) | payer MEDICARE, OTHER ==
--- NOTE | 2016-10-28 22:33 | ED ---
General Adult HPI - General Stated complaint: Chest Pain Time Seen by Provider: 10/28/16 21:51 Source: RN notes reviewed, old records reviewed - History of Present Illness Initial comments: This is a 51-year-old female the ER for evaluation. Patient presents today for evaluation of chest pain left-sided chest pain feeling of left arm. Patient is currently going undergoing neurological [place] evaluation for similar symptoms. Symptoms started tonight. No shortness of breath or diaphoresis. Patient still currently having similar symptoms. No recent fevers cough or congestion, no travel history. - Related Data Home Medications Medication Instructions Recorded Confirmed HYDROcodone/APAP 7.5-325MG [[place] 1 tab PO TID 09/25/13 10/28/16 7.5-325] Aspirin 325 mg PO DAILY PRN 10/28/16 10/28/16 Cholestyramine (with Sugar) 4 gm PO BID PRN 10/28/16 10/28/16 [Cholestyramine Packet] Allergies Allergy/AdvReac Type Severity Reaction Status Date / Time No Known Allergies Allergy Verified 10/28/16 22:31 Review of Systems ROS Statement: Those systems with pertinent positive or pertinent negative responses have been documented in the HPI. ROS Other: All systems not noted in ROS Statement are negative. Past Medical History Past Medical History: Fibromyalgia, GERD/Reflux, GI Bleed, Hypertension Additional Past Medical History / Comment(s): hx of colon polyps. Hx PVCs and palpatations takes atenolol".kidney stones, tremors,anxiety ovarian cysts History of Any Multi-Drug Resistant Organisms: None Reported Past Surgical History: Back Surgery, Cholecystectomy, Orthopedic Surgery, Tonsillectomy, Uterine Ablation Additional Past Surgical History / Comment(s): Hx egd/colonoscopy.tubes in ears as child, Back surgery x 2 with cage, plates, screws. Novasure endometrial ablation Past Anesthesia/Blood Transfusion Reactions: Postoperative Nausea & Vomiting ( PONV) Past Psychological History: Anxiety Additional Psychological History / Comment(s): pt lives in house along w/ daughter and 2 cats. has 6 steps into home.no outside services. uses a cane as needed. pt used to do factory work but currently on disability. Smoking Status: Former smoker Past Alcohol Use History: None Reported Additional Past Alcohol Use History / Comment(s): Started smoking 1980(age 16) to current. was smoking 1ppd has decreased to 3-4 cig per day. Past Drug Use History: None Reported - Past Family History Father Family Medical History: Cancer, Hypertension Additional Family Medical History / Comment(s): Prostate and lung CA. Mother Family Medical History: COPD, CVA/TIA Additional Family Medical History / Comment(s): ms, "heart problems" General Exam General appearance: alert, in no apparent distress Head exam: Present: atraumatic, normocephalic, normal inspection Eye exam: Present: normal appearance, PERRL, EOMI. Absent: scleral icterus, conjunctival injection, periorbital swelling ENT exam: Present: normal exam, mucous membranes moist Neck exam: Present: normal inspection. Absent: tenderness, meningismus, lymphadenopathy Respiratory exam: Present: normal lung sounds bilaterally. Absent: respiratory distress, wheezes, rales, rhonchi, stridor Cardiovascular Exam: Present: regular rate, normal rhythm, normal heart sounds. Absent: systolic murmur, diastolic murmur, rubs, gallop, clicks GI/Abdominal exam: Present: soft, normal bowel sounds. Absent: distended, tenderness, guarding, rebound, rigid Extremities exam: Present: normal inspection, full ROM, normal capillary refill. Absent: tenderness, pedal edema, joint swelling, calf tenderness Back exam: Present: normal inspection Neurological exam: Present: alert, oriented X3, CN II-XII intact Psychiatric exam: Present: normal affect, normal mood Skin exam: Present: warm, dry, intact, normal color. Absent: rash Course Vital Signs 10/28/16 22:00 Temperature 97.6 F Pulse Rate 75 Respiratory 16 Rate Blood Pressure 134/77 O2 Sat by Pulse 97 Oximetry Medical Decision Making - Medical Decision Making 51-year-old female with nonspecific chest pain, atypical chest pain. Symptoms are resolving, she does have numbness and tingling in handle those going to neurological workup at this time, we'll continue to follow up with outpatient neurology and can be discharged home - Lab Data Result diagrams: 10/28/16 22:40 10/28/16 22:40 Lab Results 10/28/16 10/28/16 10/28/16 Range/Units 22:40 22:40 22:40 WBC 9.3 (3.8-10.6) k/uL RBC 4.69 (3.80-5.40) m/uL Hgb 15.0 (11.4-16.0) gm/dL Hct 42.5 (34.0-46.0) % MCV 90.6 (80.0-100.0) fL MCH 31.9 (25.0-35.0) pg MCHC 35.2 (31.0-37.0) g/dL RDW 12.9 (11.5-15.5) % Plt Count 275 (150-450) k/uL Neutrophils % 56 % Lymphocytes % 32 % Monocytes % 5 % Eosinophils % 3 % Basophils % 1 % Neutrophils # 5.2 (1.3-7.7) k/uL Lymphocytes # 3.0 (1.0-4.8) k/uL Monocytes # 0.5 (0-1.0) k/uL Eosinophils # 0.3 (0-0.7) k/uL Basophils # 0.1 (0-0.2) k/uL PT 10.8 (9.0-12.0) sec INR 1.1 (<1.1) APTT 23.5 (22.0-30.0) sec Sodium 140 (137-145) mmol/L Potassium 4.0 (3.5-5.1) mmol/L Chloride 106 (98-107) mmol/L Carbon Dioxide 25 (22-30) mmol/L Anion Gap 9 mmol/L BUN 14 (7-17) mg/dL Creatinine 0.80 (0.52-1.04) mg/dL Est GFR (MDRD) Af Amer >60 (>60 ml/min/1.73 sqM) Est GFR (MDRD) Non-Af >60 (>60 ml/min/1.73 sqM) Glucose 97 (74-99) mg/dL Calcium 9.9 (8.4-10.2) mg/dL Magnesium 1.8 (1.6-2.3) mg/dL Total Bilirubin 0.4 (0.2-1.3) mg/dL AST 17 (14-36) U/L ALT 32 (9-52) U/L Alkaline Phosphatase 76 (38-126) U/L Total Protein 6.5 (6.3-8.2) g/dL Albumin 4.1 (3.5-5.0) g/dL - Radiology Data Radiology results: report reviewed (Chest x-ray is negative for acute disease), image reviewed Disposition Clinical Impression: Atypical chest pain, Chest pain Disposition: HOME SELF-CARE Condition: Good Instructions: Chest Pain (ED) Referrals: Carmela Villaseñor MD [Primary Care Provider] - 1-2 days
[2016-10-28 22:39] VITALS: RESP 16; TEMP 97.6
[2016-10-28 22:49] LABS: Basophils # (A) 0.1 k/uL (0-0.2); Basophils % (A) 1 %; CH 32.5; Eosinophils # (A) 0.3 k/uL (0-0.7); Eosinophils % (A) 3 %; HCT 42.5 % (34.0-46.0); HDW 2.52; Luc # (Auto) 0.23; Luc % (Auto) 3; Lymphocytes % (A) 32 %; MCH 31.9 pg (25.0-35.0); MCHC 35.2 g/dL (31.0-37.0); MCV 90.6 fL (80.0-100.0); Mean Platelet Volume 6.9; Monocytes # (A) 0.5 k/uL (0-1.0); Monocytes % (A) 5 %; Neutrophils # (A) 5.2 k/uL (1.3-7.7); Neutrophils % (A) 56 %; RBC 4.69 m/uL (3.80-5.40); RDW 12.9 % (11.5-15.5); WBC 9.3 k/uL (3.8-10.6); WBC (Perox) 8.67
[2016-10-28 22:59] LABS: ALT 32 U/L (9-52); AST 17 U/L (14-36); Alkaline Phosphatase 76 U/L (38-126); Anion Gap 9 mmol/L; Blood Urea Nitrogen 14 mg/dL (7-17); Calcium 9.9 mg/dL (8.4-10.2); Carbon Dioxide 25 mmol/L (22-30); Chloride 106 mmol/L (98-107); Glucose 97 mg/dL (74-99); Magnesium 1.8 mg/dL (1.6-2.3); Non-African American GFR(MDRD) >60 (>60 ml/min/1.73 sqM); Sodium 140 mmol/L (137-145); Total Bilirubin 0.4 mg/dL (0.2-1.3); Total Protein 6.5 g/dL (6.3-8.2)
[2016-10-28 23:02] LABS: INR 1.1 (<1.1); Partial Thromboplastin Time 23.5 sec (22.0-30.0); Prothrombin Time 10.8 sec (9.0-12.0)
--- NOTE | 2016-10-28 23:21 | XR ---
EXAM: XR Chest, 2 Views CLINICAL HISTORY: Chest Pain TECHNIQUE: Frontal and lateral views of the chest. COMPARISON: Chest x-ray 08/22/16 FINDINGS: Lungs: Unremarkable. No consolidation. Pleural space: Unremarkable. No pneumothorax. Heart: Mildly prominent cardiomediastinal silhouette. Mediastinum: See above. Bones/joints: Unremarkable. IMPRESSION: No acute findings.
[2016-10-28 23:25] LABS: Creatine Kinase 91 U/L (30-135)
[2016-10-28 23:37] LABS: Creatine Kinase MB 0.4 ng/mL (0.0-2.4); Troponin I <0.012 ng/mL (0.000-0.034)
[2016-10-29 00:49] VITALS: BP 114/65; PULSE 69
== END 2016-10-29 00:49 | disposition home or self-care (01) ==
LOC: EC 21:42
DX: R07.89 Other chest pain (principal); Z79.891 Long term (current) use of opiate analgesic; Z87.891 Personal history of nicotine dependence
CPT/HCPCS: 36415; 71020; 80053; 82550; 82553; 83735; 84484; 85025; 85610; 85730; 93005; 99285

== ENCOUNTER 2016-11-10 08:13 | Day surgery (SDC) | payer MEDICARE, OTHER ==
[2016-11-05 14:31] VITALS: BMI 29.7
[~2016-11-10 08:13] MED LIST: ALPRAZolam 0.25 MG TAB PO PRN; ALPRAZolam 0.5 MG TAB PO PRN; ASPIRIN 325 MG TAB PO STA; ATORVASTATIN 80 MG TAB PO STA; NITROGLYCERIN SL TABS 0.4 MG TAB SUBLINGUAL PRN; SODIUM CHLORIDE 0.9% 1,000 ML in EMPTY BAG 1 BAG IV ONE
[2016-11-10] MEDS ORDERED: ONDANSETRON 4 MG/2 ML VIAL ONE (09:07)
[2016-11-10 09:17] VITALS: RESP 16; TEMP 98.4
[2016-11-10] MEDS ORDERED: MIDAZOLAM 2 MG/2 ML VIAL ONE (09:29)
[2016-11-10] MEDS ORDERED: fentaNYL (PF) 50 MCG/ML 2 ML AMP ONE (09:29)
[2016-11-10] MEDS ORDERED: LIDOCAINE 2% INJ 20 MG/ML (20 ML MDV) ONE (09:33)
[2016-11-10] MEDS ORDERED: fentaNYL (PF) 50 MCG/ML 2 ML AMP IV ONE (09:34)
[2016-11-10] MEDS: MIDAZOLAM 2 MG/2 ML VIAL IV ONE ×2 (09:34→09:39)
[2016-11-10] MEDS ORDERED: LIDOCAINE 2% INJ 20 MG/ML SQ ONE (09:35)
[2016-11-10] MEDS ORDERED: IOHEXOL 350 MG/ML 125ML BOTTLE INJ ONE (09:49)
[2016-11-10] MEDS ORDERED: RX INFO: IV CONTRAST WAS GIVEN 1 EACH MISC MISCELLANE PRN (10:01)
[2016-11-10] MEDS ORDERED: SODIUM CHLORIDE 0.9% 1,000 ML IV SCH (10:15)
--- NOTE | 2016-11-10 10:38 | CC ---
INDICATION: Unstable angina. Referring physician is Dr. Carmela Villaseñor. PROCEDURE NOTE: After obtaining informed consent, left heart catheterization, coronary angiogram, LV gram and aortogram are performed via the right femoral artery using standard Gisel catheters. The patient tolerated the procedure well without any obvious immediate complications. FINDINGS; 1. HEMODYNAMICS: Left ventricular end-diastolic pressure is 8 to 12 mm. There is no significant gradient across the aortic valve. 2. LEFT VENTRICULOGRAM: Left ventriculogram is performed in HARRELL position shows normal left ventricular size and systolic function with an ejection fraction of 60%. 3. AORTOGRAM: Aortogram is performed in a ( ) position and does not show aortic aneurysm or dissection. 4. ANGIOGRAPHIC DATA: LEFT MAIN CORONARY ARTERY: The left main coronary artery is a normal size vessel, divides into left anterior descending coronary artery and circumflex coronary artery. 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 We almost cannot locate the LAD past its mid portion. Circumflex coronary artery is a large codominant vessel and is free of significant stenosis. Right coronary artery again is a large dominant system. We do not find any significant obstructive disease. CONCLUSIONS: 1. Normal left ventricular systolic function. 2. Normal aortogram. 3. No significant obstructive coronary artery disease. 4. 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 PLAN: Patient's management is going to be with medical therapy. Patient had moderate conscious sedation. Total sedation time was 18 minutes. Femoral angiogram was obtained and decision was made for manual hemostasis given the relatively high entry point into the common femoral artery. [facility]
[2016-11-10] MEDS ORDERED: HYDROcodone/APAP 7.5-325MG 1 EACH TAB PO PRN (12:18)
[2016-11-10 18:10] VITALS: BP 112/72; PULSE 95
== END 2016-11-10 18:07 | disposition home or self-care (01) ==
LOC: CATHCVL 08:13
PROVIDERS: ATTEND Internal Medicine Cardiovascular Disease
DX: R07.2 Precordial pain (principal); R06.02 Shortness of breath; I20.0 Unstable angina; Z79.1 Long term (current) use of non-steroidal anti-inflammatories (NSAID); Z79.899 Other long term (current) drug therapy
CPT/HCPCS: 93458; 93567; 81025; 99152; C1894; C1769; J2001; J2250; J2405; J3010; Q9967

== ENCOUNTER 2016-11-17 14:07 | Emergency (ER) | payer MEDICARE, OTHER ==
[2016-11-17] MEDS ORDERED: SODIUM CHLORIDE 0.9% 1,000 ML IV STA (14:38)
[2016-11-17] MEDS ORDERED: SODIUM CHLORIDE 0.9% 500 ML IV STA (14:38)
[2016-11-17] MEDS ORDERED: ONDANSETRON 4 MG/2 ML VIAL IVP STA (14:40)
[2016-11-17] MEDS ORDERED: LORazepam 2 MG/ML SYRINGE IV STA ×2 (14:40→15:45)
--- NOTE | 2016-11-17 14:46 | ED ---
General Adult HPI - General Chief complaint: Headache Stated complaint: 1 wk post Op Cardiac Cath/Numbness L side Time Seen by Provider: 11/17/16 14:20 Source: patient, family, RN notes reviewed Mode of arrival: wheelchair Limitations: no limitations - History of Present Illness Initial comments: Patient is a pleasant 51-year-old female presenting to the emergency Department with complaints of headaches. Symptoms have been occurring since August. Patient gets left-sided headache with left-sided paresthesias. Patient states she has had several medical problems recently. Patient at least once daily has an episode with associated chest discomfort and paresthesias and tremors. Patient states she frequently has these headaches in the left posterior region associated paresthesias. Patient has been evaluated by multiple physicians for this. Had discomfort is mild at this time. Patient has nausea and persistent paresthesias. No chest pain at this time. Patient did have a negative heart catheterization last week. - Related Data Home Medications Medication Instructions Recorded Confirmed HYDROcodone/APAP 7.5-325MG [[place] 1 tab PO TID PRN 09/25/13 11/17/16 7.5-325] Aspirin 325 mg PO DAILY PRN 10/28/16 11/17/16 Omeprazole [PriLOSEC] 20 mg PO DAILY 11/06/16 11/17/16 Atenolol [Tenormin] 25 mg PO DAILY 11/17/16 11/17/16 Gabapentin [Neurontin] 100 mg PO DAILY PRN 11/17/16 11/17/16 Previous Rx's Medication Instructions Recorded LORazepam [Ativan] 1 mg PO TID PRN #8 tab 11/17/16 Allergies Allergy/AdvReac Type Severity Reaction Status Date / Time No Known Allergies Allergy Verified 11/17/16 15:10 Review of Systems ROS Statement: Those systems with pertinent positive or pertinent negative responses have been documented in the HPI. ROS Other: All systems not noted in ROS Statement are negative. Constitutional: Denies: fever Eyes: Denies: eye pain ENT: Denies: ear pain Respiratory: Denies: cough Cardiovascular: Reports: chest pain, palpitations Endocrine: Reports: fatigue Gastrointestinal: Reports: nausea Genitourinary: Denies: dysuria Musculoskeletal: Denies: back pain Skin: Denies: rash Neurological: Reports: as per HPI, headache. Denies: weakness Past Medical History Past Medical History: Fibromyalgia, GERD/Reflux, GI Bleed, Hypertension, Neurologic Disorder Additional Past Medical History / Comment(s): hx of colon polyps, PVCs and palpatations .kidney stones, ovarian cysts; has tremors unknown origin- seeing neuro soon. GI Bleed 2016 History of Any Multi-Drug Resistant Organisms: None Reported Past Surgical History: Back Surgery, Cholecystectomy, Orthopedic Surgery, Tonsillectomy, Uterine Ablation Additional Past Surgical History / Comment(s): EGD, colonoscopy ; heel surgery Past Anesthesia/Blood Transfusion Reactions: Postoperative Nausea & Vomiting ( PONV) Past Psychological History: Anxiety Smoking Status: Current some day smoker Past Alcohol Use History: None Reported Past Drug Use History: None Reported - Past Family History Father Family Medical History: Cancer, Hypertension Additional Family Medical History / Comment(s): Prostate and lung CA. Mother Family Medical History: COPD, CVA/TIA Additional Family Medical History / Comment(s): ms, "heart problems" General Exam Limitations: no limitations General appearance: alert, in no apparent distress Head exam: Present: atraumatic, other (No tenderness to the temporal artery.) Eye exam: Present: normal appearance, PERRL, EOMI. Absent: nystagmus ENT exam: Present: normal oropharynx Neck exam: Present: normal inspection Respiratory exam: Present: normal lung sounds bilaterally Cardiovascular Exam: Present: regular rate, normal rhythm GI/Abdominal exam: Present: soft. Absent: tenderness Extremities exam: Present: normal inspection. Absent: pedal edema, calf tenderness Neurological exam: Present: alert, oriented X3, CN II-XII intact. Absent: motor sensory deficit Expanded Cranial nerves: EOM's Intact: Normal Sensory exam: Upper Extremity Light Touch: Normal, Lower Extremity Light Touch: Normal Motor strength exam: RUE: 5, LUE: 5, RLE: 5, LLE: 5 Eye Response: (4) open spontaneously Motor Response: (6) obeys commands Verbal Response: (5) oriented Psychiatric exam: Present: normal affect, normal mood Skin exam: Present: normal color Course Vital Signs 11/17/16 11/17/16 11/17/16 14:12 15:18 15:59 Temperature 98.5 F Pulse Rate 101 H 79 85 Respiratory 20 16 16 Rate Blood Pressure 138/71 138/83 133/72 O2 Sat by Pulse 98 97 96 Oximetry EKG Findings - EKG Comments: EKG Findings:: Normal sinus rhythm 80. NC 162. QRS 88. QT 382. QTC 440. Normal axis. Normal QRS. Normal ST-T. Medical Decision Making - Medical Decision Making Patient reevaluated and is somewhat improved down second dose of Ativan. Patient states she has seen her neurologist and psychiatrist and psychologist and primary care physician and counselor for this and is advised to follow-up with him again. - Lab Data Result diagrams: 11/17/16 15:00 11/17/16 15:00 Lab Results 11/17/16 11/17/16 11/17/16 Range/Units 15:00 15:00 15:00 WBC 10.9 H (3.8-10.6) k/uL RBC 4.85 (3.80-5.40) m/uL Hgb 15.3 (11.4-16.0) gm/dL Hct 44.2 (34.0-46.0) % MCV 91.1 (80.0-100.0) fL MCH 31.6 (25.0-35.0) pg MCHC 34.7 (31.0-37.0) g/dL RDW 13.2 (11.5-15.5) % Plt Count 268 (150-450) k/uL Neutrophils % 72 % Lymphocytes % 19 % Monocytes % 5 % Eosinophils % 2 % Basophils % 1 % Neutrophils # 7.9 H (1.3-7.7) k/uL Lymphocytes # 2.1 (1.0-4.8) k/uL Monocytes # 0.6 (0-1.0) k/uL Eosinophils # 0.2 (0-0.7) k/uL Basophils # 0.1 (0-0.2) k/uL PT (9.0-12.0) sec INR (<1.2) APTT (22.0-30.0) sec Sodium 139 (137-145) mmol/L Potassium 3.8 (3.5-5.1) mmol/L Chloride 107 (98-107) mmol/L Carbon Dioxide 24 (22-30) mmol/L Anion Gap 8 mmol/L BUN 11 (7-17) mg/dL Creatinine 0.54 (0.52-1.04) mg/dL Est GFR (MDRD) Af Amer >60 (>60 ml/min/1.73 sqM) Est GFR (MDRD) Non-Af >60 (>60 ml/min/1.73 sqM) Glucose 83 (74-99) mg/dL Calcium 9.4 (8.4-10.2) mg/dL Phosphorus 2.9 (2.5-4.5) mg/dL Magnesium 1.8 (1.6-2.3) mg/dL Total Bilirubin 0.8 (0.2-1.3) mg/dL AST 14 (14-36) U/L ALT 27 (9-52) U/L Alkaline Phosphatase 73 (38-126) U/L Total Protein 6.9 (6.3-8.2) g/dL Albumin 4.3 (3.5-5.0) g/dL TSH 1.440 (0.465-4.680) mIU/L Free T4 1.19 (0.78-2.19) ng/dL Free T3 pg/mL 3.1 (2.8-5.3) pg/ml Urine Color Light Yellow Urine Appearance Cloudy H (Clear) Urine pH 5.5 (5.0-8.0) Ur Specific [place] 1.008 (1.001-1.035) Urine Protein Negative (Negative) Urine Glucose (UA) Negative (Negative) Urine Ketones 2+ H (Negative) Urine Blood Trace H (Negative) Urine Nitrite Negative (Negative) Urine Bilirubin Negative (Negative) Urine Urobilinogen <2.0 (<2.0) mg/dL Ur Leukocyte Esterase Negative (Negative) Urine RBC 3 (0-5) /hpf Urine WBC 1 (0-5) /hpf Ur Squamous Epith Cells 5 H (0-4) /hpf Urine Bacteria Rare H (None) /hpf Hyaline Casts 1 (0-2) /lpf Urine Mucus Occasional H (None) /hpf 11/17/ Range/Units 15:00 WBC (3.8-10.6) k/uL RBC (3.80-5.40) m/uL Hgb (11.4-16.0) gm/dL Hct (34.0-46.0) % MCV (80.0-100.0) fL MCH (25.0-35.0) pg MCHC (31.0-37.0) g/dL RDW (11.5-15.5) % Plt Count (150-450) k/uL Neutrophils % % Lymphocytes % % Monocytes % % Eosinophils % % Basophils % % Neutrophils # (1.3-7.7) k/uL Lymphocytes # (1.0-4.8) k/uL Monocytes # (0-1.0) k/uL Eosinophils # (0-0.7) k/uL Basophils # (0-0.2) k/uL PT 10.7 (9.0-12.0) sec INR 1.1 (<1.2) APTT 23.5 (22.0-30.0) sec Sodium (137-145) mmol/L Potassium (3.5-5.1) mmol/L Chloride (98-107) mmol/L Carbon Dioxide (22-30) mmol/L Anion Gap mmol/L BUN (7-17) mg/dL Creatinine (0.52-1.04) mg/dL Est GFR (MDRD) Af Amer (>60 ml/min/1.73 sqM) Est GFR (MDRD) Non-Af (>60 ml/min/1.73 sqM) Glucose (74-99) mg/dL Calcium (8.4-10.2) mg/dL Phosphorus (2.5-4.5) mg/dL Magnesium (1.6-2.3) mg/dL Total Bilirubin (0.2-1.3) mg/dL AST (14-36) U/L ALT (9-52) U/L Alkaline Phosphatase (38-126) U/L Total Protein (6.3-8.2) g/dL Albumin (3.5-5.0) g/dL TSH (0.465-4.680) mIU/L Free T4 (0.78-2.19) ng/dL Free T3 pg/mL (2.8-5.3) pg/ml Urine Color Urine Appearance (Clear) Urine pH (5.0-8.0) Ur Specific [place] (1.001-1.035) Urine Protein (Negative) Urine Glucose (UA) (Negative) Urine Ketones (Negative) Urine Blood (Negative) Urine Nitrite (Negative) Urine Bilirubin (Negative) Urine Urobilinogen (<2.0) mg/dL Ur Leukocyte Esterase (Negative) Urine RBC (0-5) /hpf Urine WBC (0-5) /hpf Ur Squamous Epith Cells (0-4) /hpf Urine Bacteria (None) /hpf Hyaline Casts (0-2) /lpf Urine Mucus (None) /hpf - Radiology Data Radiology results: report reviewed (Computed tomography scan of the brain shows no acute process.), image reviewed (Two-view chest x-ray shows no acute process. ) Disposition Clinical Impression: Paresthesia Disposition: HOME SELF-CARE Condition: Stable Instructions: Paresthesia (ED) Additional Instructions: Please again follow-up with your neurologist, primary care physician, psychiatrist, psychologist, and counselor in the next few days for recheck. Return for change in mental status, weakness, worsening symptoms or other concerns. Prescriptions: LORazepam [Ativan] 1 mg PO TID PRN #8 tab PRN Reason: Anxiety Referrals: Carmela Villaseñor MD [Primary Care Provider] - 1-2 days Time of Disposition: 16:37
[2016-11-17 15:16] LABS: Basophils # (A) 0.1 k/uL (0-0.2); Basophils % (A) 1 %; CH 32.1; CHCM 35.4; Eosinophils # (A) 0.2 k/uL (0-0.7); Eosinophils % (A) 2 %; HCT 44.2 % (34.0-46.0); HDW 2.57; HGB 15.3 gm/dL (11.4-16.0); Luc # (Auto) 0.19; Luc % (Auto) 2; Lymphocytes # (A) 2.1 k/uL (1.0-4.8); Lymphocytes % (A) 19 %; MCH 31.6 pg (25.0-35.0); MCHC 34.7 g/dL (31.0-37.0); MCV 91.1 fL (80.0-100.0); Mean Platelet Volume 7.1; Monocytes # (A) 0.6 k/uL (0-1.0); Monocytes % (A) 5 %; Neutrophils # (A) 7.9 k/uL (1.3-7.7); Neutrophils % (A) 72 %; RBC 4.85 m/uL (3.80-5.40); RDW 13.2 % (11.5-15.5); WBC 10.9 k/uL (3.8-10.6); WBC (Perox) 10.07
[2016-11-17 15:18] LABS: Appearance,Urine Cloudy (Clear); Bacteria,Urine Rare /hpf; Bilirubin,Urine Negative (Negative); Glucose,Urine (UA) Negative (Negative); Ketones,Urine 2+ (Negative); Leukocyte Esterase,Urine Negative (Negative); Mucus,Urine Occasional /hpf; Nitrite,Urine Negative (Negative); PH, Urine 5.5 (5.0-8.0); Particle Count 5880; Protein,Urine Negative (Negative); RBC,Urine 3 /hpf (0-5); Specific Gravity,Urine 1.008 (1.001-1.035); Squamous Epithelial Cell,Urine 5 /hpf (0-4); UA Billing (MACRO vs. MICRO) MICRO; Urobilinogen,Urine <2.0 mg/dL (<2.0); WBC,Urine 1 /hpf (0-5)
[2016-11-17 15:24] LABS: INR 1.1 (<1.2); Partial Thromboplastin Time 23.5 sec (22.0-30.0); Prothrombin Time 10.7 sec (9.0-12.0)
[2016-11-17 15:26] LABS: ALT 27 U/L (9-52); AST 14 U/L (14-36); Alkaline Phosphatase 73 U/L (38-126); Anion Gap 8 mmol/L; Blood Urea Nitrogen 11 mg/dL (7-17); Calcium 9.4 mg/dL (8.4-10.2); Carbon Dioxide 24 mmol/L (22-30); Chloride 107 mmol/L (98-107); Glucose 83 mg/dL (74-99); Magnesium 1.8 mg/dL (1.6-2.3); Non-African American GFR(MDRD) >60 (>60 ml/min/1.73 sqM); Phosphorous 2.9 mg/dL (2.5-4.5); Potassium 3.8 mmol/L (3.5-5.1); Sodium 139 mmol/L (137-145); Total Bilirubin 0.8 mg/dL (0.2-1.3); Total Protein 6.9 g/dL (6.3-8.2)
--- NOTE | 2016-11-17 15:39 | XR ---
EXAMINATION TYPE: XR chest 2V DATE OF EXAM: 11/17/2016 COMPARISON: 10/28/2016 HISTORY: Shortness of breath TECHNIQUE: Frontal and lateral views of the chest are obtained. FINDINGS: Scattered senescent parenchymal changes noted. Hyperinflation compatible with COPD. No evidence for infiltrate. No evidence for atelectasis. Cardiomegaly without overt failure. Mediastinal structures are stable and grossly unremarkable. No evidence for hilar prominence. Degenerative changes dorsal spine. IMPRESSION: 1. No evidence for acute pulmonary disease.
--- NOTE | 2016-11-17 15:39 | CT ---
EXAMINATION TYPE: CT brain wo con DATE OF EXAM: 11/17/2016 COMPARISON: Previous study dated 11/14/2013. HISTORY: Patient complains of headache, left side facial numbness, and weakness. CT DLP: 1014.2 mGycm Automated exposure control for dose reduction was used. FINDINGS: Central structures are midline. There is no evidence of hydrocephalus. No acute focal lesion, mass ef fect or midline shift is seen. I do not see evidence of intracranial blood. There is minimal mucoperiosteal thickening involving the left sphenoid sinus. The remainder the paran robby sinuses and mastoids are clear. No depressed skull fracture is seen. IMPRESSION: 1. NO ACUTE INTRACRANIAL ABNORMALITY. 2. 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
[2016-11-17] MEDS ORDERED: HYDROmorphone 1 MG/ML 1 ML SYRINGE IVP STA (15:45)
[2016-11-17 16:45] VITALS: BP 134/78; PULSE 78; RESP 18; TEMP 97.8
== END 2016-11-17 17:00 | disposition home or self-care (01) ==
LOC: EC 14:07
DX: R20.2 Paresthesia of skin (principal); R11.0 Nausea; R51 Headache; I10 Essential (primary) hypertension; K21.9 Gastro-esophageal reflux disease without esophagitis; R40.2142 Coma scale, eyes open, spontaneous, at arrival to emergency department; R40.2252 Coma scale, best verbal response, oriented, at arrival to emergency department; R40.2362 Coma scale, best motor response, obeys commands, at arrival to emergency department; F17.200 Nicotine dependence, unspecified, uncomplicated; Z79.899 Other long term (current) drug therapy
CPT/HCPCS: 36415; 93005; 84439; 84481; 80053; 83735; 84100; 84443; 85025; 85610; 85730; 81001; 71020; 70450; 99284; 96374; 96375 ×2; 96376; 96361 ×2; J2060; J2405; J1170

== ENCOUNTER → 2016-12-10 | Outpatient (CLI) | payer MEDICARE, OTHER ==
[2016-12-10 10:33] LABS: CH 31.6; CHCM 34.5; HCT 43.8 % (34.0-46.0); HDW 2.56; HGB 15.4 gm/dL (11.4-16.0); MCH 32.4 pg (25.0-35.0); MCHC 35.1 g/dL (31.0-37.0); MCV 92.2 fL (80.0-100.0); Mean Platelet Volume 6.6; RBC 4.75 m/uL (3.80-5.40); RDW 12.5 % (11.5-15.5); WBC 6.7 k/uL (3.8-10.6)
[2016-12-10 11:09] LABS: Prolactin 7.6 ng/mL (3.0-18.6)
== END | disposition home or self-care (01) ==
LOC: LABWHC1 10:11
PROVIDERS: ATTEND Internal Medicine Endocrinology, Diabetes & Metabolism
DX: R53.83 Other fatigue (principal)
CPT/HCPCS: 36415; 82024; 82533; 82607; 83001; 84146; 84439; 84443; 84481; 85027

== ENCOUNTER → 2016-12-22 | Outpatient (CLI) | payer MEDICARE, OTHER ==
--- NOTE | 2016-12-22 16:32 | MR ---
EXAMINATION TYPE: MR cervical spine wo/w con DATE OF EXAM: 12/22/2016 COMPARISON: NONE HISTORY: Neck pain, facial numbness, headache TECHNIQUE: Multiplanar, multisequence images of the cervical spine were acquired utilizing 17 mL intravenous Mul tiHance gadolinium contrast. Diffusion weighted imaging was performed. C2-C3: No evidence for degenerative disc disease. No disc bulge/herniation or protrusion. No Canal stenosis. Foramina are patent bilaterally. C3-C4: Right paracentral disc protrusion is present with moderate anterior thecal sac compression. Th is has cord contact. No AP spinal canal stenosis present. Neural foramen are patent. C4-C5: Small right paracentral disc bulge is present without cord contact. No spinal canal stenosis p resent. Neural foramen are patent. C5-C6: There is a moderate size central disc herniation with mild anterior thecal sac compression. No spinal canal stenosis present. No cord contact is evident. Broad-based residual disc material has an terior thecal sac flattening. There is moderate right foraminal narrowing. C6-C7: Mild disc bulge is present centrally without spinal cord contact. No AP spinal canal stenosis present. Neural foramen are patent. C7-T1: No evidence for degenerative disc disease. No disc bulge/herniation or protrusion. No Canal stenosis. Foramina are patent bilaterally. ] Disc desiccation is present throughout the cervical spine IMPRESSION: 1. Right paracentral disc protrusion C3-4 with cord contact without deformity. 2. Degenerative disc changes with disc bulging present C4-5 C5-6 and C6-7 discussed above
== END | disposition home or self-care (01) ==
LOC: RADMRIMAIN 14:00
PROVIDERS: ATTEND Psychiatry & Neurology Neurology
DX: M50.223 Other cervical disc displacement at C6-C7 level (principal); M50.30 Other cervical disc degeneration, unspecified cervical region
CPT/HCPCS: 72156; A9577

== ENCOUNTER → 2017-09-21 | Outpatient (CLI) | payer MEDICARE, OTHER ==
[2017-09-21 11:25] LABS: Appearance,Urine Clear (Clear); Color,Urine Yellow; Glucose,Urine (UA) Negative (Negative); Ketones,Urine Negative (Negative); Protein,Urine Negative (Negative)
[2017-09-21 11:26] LABS: Bilirubin,Urine Negative (Negative); Blood,Urine Trace (Negative); Leukocyte Esterase,Urine Negative (Negative); Mucus,Urine Few /hpf; Nitrite,Urine Negative (Negative); RBC,Urine 3 /hpf (0-5); Squamous Epithelial Cell,Urine 2 /hpf (0-4); Urobilinogen,Urine <2.0 mg/dL (<2.0); WBC,Urine 1 /hpf (0-5)
[2017-09-21 11:27] LABS: HCT 43.4 % (34.0-46.0); HGB 14.5 gm/dL (11.4-16.0); MCH 30.5 pg (25.0-35.0); MCHC 33.4 g/dL (31.0-37.0); MCV 91.2 fL (80.0-100.0); Mean Platelet Volume 6.3; Platelet Count 280 k/uL (150-450); RBC 4.76 m/uL (3.80-5.40); RDW 12.3 % (11.5-15.5); WBC 7.2 k/uL (3.8-10.6)
[2017-09-21 11:38] LABS: Creatinine,Urine Random 161.5 mg/dL
[2017-09-21 11:42] LABS: ALT 31 U/L (9-52); AST 20 U/L (14-36); Albumin 4.2 g/dL (3.5-5.0); Alkaline Phosphatase 64 U/L (38-126); Anion Gap 12 mmol/L; Blood Urea Nitrogen 16 mg/dL (7-17); Calcium 9.2 mg/dL (8.4-10.2); Carbon Dioxide 26 mmol/L (22-30); Chloride 102 mmol/L (98-107); Glucose 116 mg/dL (74-99); Magnesium 1.9 mg/dL (1.6-2.3); Phosphorus 2.9 mg/dL (2.5-4.5); Potassium 4.2 mmol/L (3.5-5.1); Sodium 140 mmol/L (137-145); Total Bilirubin 0.6 mg/dL (0.2-1.3); Uric Acid 3.9 mg/dL (3.7-7.4)
[2017-09-21 16:45] LABS: Parathyroid Hormone Intact 47.9 pg/mL (14.0-72.0)
[2017-09-21 16:51] LABS: Iron Saturation 29.23 (12.00-45.00)
[2017-09-21 17:00] LABS: Vitamin D 25 Hydroxy 29.9 ng/mL (30.0-100.0)
== END | disposition home or self-care (01) ==
LOC: LABWHC1 10:37
PROVIDERS: ATTEND Internal Medicine
DX: N39.0 Urinary tract infection, site not specified (principal); E55.9 Vitamin D deficiency, unspecified; N25.81 Secondary hyperparathyroidism of renal origin; M10.9 Gout, unspecified; D50.9 Iron deficiency anemia, unspecified; R31.9 Hematuria, unspecified
CPT/HCPCS: 36415; 80053; 81001; 82306; 82570; 82728; 83540; 83550; 83735; 83970; 84100; 84156; 84550; 85027; 87086

== ENCOUNTER → 2017-10-21 | Outpatient (CLI) | payer MEDICARE, OTHER ==
--- NOTE | 2017-10-21 10:21 | US ---
EXAMINATION TYPE: US transvaginal DATE OF EXAM: 10/21/2017 COMPARISON: CT & US 2017 CLINICAL HISTORY: R10.2 Pelvic and perineal pain. Intermittent pelvic pain x 1 year, greater on the r ight side, 6, para 3, miscarriage 2, 1, history of uterine ablation, history of nilam st CA TECHNIQUE: Transvaginal exam only per ordering physician. Date of LMP: 5+ years ago EXAM MEASUREMENTS: Uterus: 7.2 x 3.5 x 5.4 cm Endometrial Stripe: 0.4 cm Right Ovary: 2.3 x 1.8 x 1.7 cm Left Ovary: 2.4 x 1.5 x 1.7 cm 1. Uterus: anteverted, heterogeneous, multiple nabothian cysts with largest seen internal echoes luis suring 1.8cm 2. Endometrium: wnl 3. Right Ovary: wnl 4. Left Ovary: wnl 5. Bilateral Adnexa: wnl 6. Posterior cul-de-sac: wnl IMPRESSION: 1. Uterus is heterogeneous which is nonspecific. No abnormal free fluid collection or adnexal mass. 2. There is suggestion of multiple nabothian cysts at least one of which contains internal debris. Co rrelate clinically.
== END | disposition home or self-care (01) ==
LOC: RADUSWWP 09:29
PROVIDERS: ATTEND Obstetrics & Gynecology
DX: N85.8 Other specified noninflammatory disorders of uterus (principal); R10.2 Pelvic and perineal pain
CPT/HCPCS: 76830

== ENCOUNTER → 2017-11-09 | Outpatient (CLI) | payer MEDICARE, OTHER | END | disposition home or self-care (01) | LOC: CPPFTMAIN 07:58 | PROVIDERS: ATTEND Family Medicine | DX: R06.02 Shortness of breath (principal) | CPT/HCPCS: 94060; 94726; 94729 ==

== ENCOUNTER → 2017-11-10 | Outpatient (CLI) | payer MEDICARE, OTHER ==
--- NOTE | 2017-11-10 15:00 | CT ---
EXAMINATION TYPE: CT chest wo con DATE OF EXAM: 11/10/2017 COMPARISON: Chest x-ray November 17, 2016 HISTORY: Shortness of breath on exertion CT DLP: 552 mGycm. Automated Exposure Control for Dose Reduction was Utilized. TECHNIQUE: CT scan of the thorax is performed without IV contrast. FINDINGS: LUNGS: The lungs are grossly clear, there is no concerning parenchymal mass or nodule identified. T here is no pleural effusion or pneumothorax seen. The tracheobronchial tree is patent. MEDIASTINUM: Lack of IV contrast is noted to limit evaluation for mediastinal and especially hilar ad enopathy. There are no definitive greater than 1 cm hilar or mediastinal lymph nodes. No cardiomega ly or pericardial effusion is seen. Small hiatal hernia is seen. OTHER: Bilateral subpectoral breast implants are present. There is partial visualization of 1.7 cm ro unded low dense lesion mid pole level right kidney axial image 61 favoring simple cyst. There is mild to moderate multilevel spurring in the thoracic spine. IMPRESSION: No suspicious acute or chronic pulmonary process.
--- NOTE | 2017-11-10 15:18 | US ---
EXAMINATION TYPE: US thyroid st tissue head/neck DATE OF EXAM: 11/10/2017 COMPARISON: Same day chest CT CLINICAL HISTORY: R00.2 palpitations. Hot flashes, intermittent neck swelling, weight gain, weight l oss GLAND SIZE: Right Lobe: 4.6 x 1.8 x 2.1 cm Overall Parenchyma: heterogenous Left Lobe: 4.8 x 1.6 x 1.3 cm Overall Parenchyma: heterogeneous Isthmus Thickness: 0.4 cm NODULES RIGHT: # of nodules measured on right: 0 LEFT: # of nodules measured on left: 0 ISTHMUS: # of nodules measured in the isthmus: 0 Bilateral neck scanned, no evidence of lymphadenopathy. Heterogeneous normal-sized thyroid without discrete nodules. IMPRESSION: As above
== END | disposition home or self-care (01) ==
LOC: RADCTMAIN 14:20
PROVIDERS: ATTEND Family Medicine
DX: R06.02 Shortness of breath (principal); R23.2 Flushing; R00.2 Palpitations; R76.8 Other specified abnormal immunological findings in serum
CPT/HCPCS: 71250; 76536

== ENCOUNTER → 2017-12-02 | Outpatient (CLI) | payer MEDICARE, OTHER ==
[2017-12-02 12:30] VITALS: BP 123/79; PULSE 79; BMI 28.0
--- NOTE | 2017-12-02 13:25 | P.GSHP ---
History of Present Illness H&P Date: 12/02/17 The patient is a 52-year-old white female status post bilateral mastectomy for a left breast cancer. The patient did not have any tumor in her lymph nodes. She has not had any evidence of metastatic disease. She did have bilateral breast reconstruction at the time of surgery. The patient is not taking any antiestrogen, she did not have any chemotherapy or radiation therapy. Patient followed with Dr. Chamberlain and he did not recommend any further treatment. The patient now is complaining of discomfort on the left chest wall since her surgery. She did have a CAT scan performed 11/10/2017 which showed no suspicious acute or chronic pulmonary process. Patient was noted to have bilateral subpectoral breast implants. Family History: 1. father: prostate and lung 2. paternal aunt: breast 3. paternal aunt: ovarian 4. paternal cousin: cervical Past Surgical History: 1. laminectomy 2. lower back fusion 3. gallbladder 4. Novasure 5. bilateral mastectomy and reconstruction Past Medical History: 1. anxiety 2. palpitations follow with cardiology Hormonal history: Menarche: 13 Pregnancies: 5, 3 live births 2 miscarriages, 8, negative First live at 25 menopause: 46 with NOVA SURE procedure BCP: none hormones: none Social history: Smoking: Negative Alcohol: Negative Drugs: Negative - Constitutional Constitutional: Reports sweats - EENT Eyes: bilateral blurred vision (wears glasses), denies pain Ears: right: tinnitus, deny: decreased hearing Ears, nose, mouth and throat: Reports headache, Denies sore throat - Breasts Breasts: bilateral: as per HPI - Cardiovascular Comment: at times on the left side, follows with DR. Duggan for palpatations Cardiovascular: Reports chest pain, Denies shortness of breath - Respiratory Respiratory: Denies cough, Denies 7 - Gastrointestinal Comment: IBS Gastrointestinal: Reports diarrhea, Reports dyspepsia, Denies abdominal pain, Denies nausea, Denies vomiting - Genitourinary (Female) Comment: kidney stones - Menstruation Menstruation: Reports as per HPI - Musculoskeletal Comment: arthritis - Integumentary Integumentary: Reports pruritus, Reports rash - Neurological Comment: related to back surgery numbness in her left foot Neurological: Reports numbness, Reports weakness - Psychiatric Psychiatric: Reports anxiety - Endocrine Endocrine: Denies fatigue, Denies weight change - Hematologic/Lymphatic Comment: Baby aspirin - Allergic/Immunologic Comment: none Past Medical History Past Medical History: Fibromyalgia, GERD/Reflux, GI Bleed, Hypertension, Neurologic Disorder Additional Past Medical History / Comment(s): hx of colon polyps, PVCs and palpatations .kidney stones, ovarian cysts; has tremors unknown origin- seeing neuro soon. GI Bleed 2016 History of Any Multi-Drug Resistant Organisms: None Reported Past Surgical History: Back Surgery, Cholecystectomy, Orthopedic Surgery, Tonsillectomy, Uterine Ablation Additional Past Surgical History / Comment(s): EGD, colonoscopy ; heel surgery Past Anesthesia/Blood Transfusion Reactions: Postoperative Nausea & Vomiting ( PONV) Past Psychological History: Anxiety Additional Psychological History / Comment(s): pt lives in house along w/ daughter and 2 cats. has 6 steps into home.no outside services. uses a cane as needed. pt used to do factory work but currently on disability. Smoking Status: Former smoker Past Alcohol Use History: None Reported Additional Past Alcohol Use History / Comment(s): Started smoking 1980(age 16) to current. was smoking 1ppd has decreased to 1/2 cig per day. Past Drug Use History: None Reported - Past Family History Father Family Medical History: Cancer, Hypertension Additional Family Medical History / Comment(s): Prostate and lung CA. Mother Family Medical History: COPD, CVA/TIA Additional Family Medical History / Comment(s): ms, "heart problems" Medications and Allergies Home Medications Medication Instructions Recorded Confirmed Type HYDROcodone/APAP 7.5-325MG [[place] 1 tab PO TID PRN 09/25/13 12/02/17 History 7.5-325] Aspirin 325 mg PO DAILY PRN 10/28/16 12/02/17 History Omeprazole [PriLOSEC] 20 mg PO DAILY 11/06/16 12/02/17 History Atenolol [Tenormin] 25 mg PO DAILY 11/17/16 12/02/17 History Multivit with Calcium,Iron,Min 1 250ml.bag PO DAILY 12/02/17 12/02/17 History [Women's Multivitamin] [place]-3 Fatty Acids/Fish Oil [Fish 1,000 cap PO DAILY 12/02/17 12/02/17 History Oil 1,000 mg Softgel] Allergies Allergy/AdvReac Type Severity Reaction Status Date / Time No Known Allergies Allergy Verified 11/17/16 15:10 Surgical - Exam Vital Signs Pulse BP Pulse Ox 79 123/79 98 12/02/17 12:26 12/02/17 12:26 12/02/17 12:26 - Integumentary Examination of chest wall: Right chest wall: Incision clean and dry implant in place Right axilla: No adenopathy of concern Left chest wall: Incision clean and dry implant in place Left axilla: No adenopathy of concern Results Computed tomography scan results reviewed Assessment and Plan Assessment: Impression/plan: 1. Status post bilateral mastectomy left breast cancer has followed with medical oncology and at this time is not on any additional therapy 2. History of cardiac palpitations and follows with cardiology 3. Anxiety 4. Status post back surgery 5. Patient is most likely perimenopausal has not had a period for approximately 4 years related to NovaSure treatment 6. Polyps removed from prior colonoscopy will follow with Dr. Otoole Plan: 1. Follow here in 6 months time related to her prior left breast cancer 2. Patient is following with plastic surgeon 3. Continue to follow with medical doctors regarding medical conditions Cc: ,
== END ==
LOC: WWCWWP 11:37
PROVIDERS: ATTEND Surgery
DX: Z53.9 Procedure and treatment not carried out, unspecified reason (principal)

== ENCOUNTER → 2017-12-28 | Outpatient (CLI) | payer MEDICARE, OTHER ==
--- NOTE | 2017-12-28 14:04 | MR ---
EXAMINATION TYPE: MR angio head wo con DATE OF EXAM: 12/28/2017 COMPARISON: None HISTORY: Headache CONTRAST: None TECHNIQUE: Multiplanar multiecho imaging on a 3.0 Teresa magnet is performed through the beaver of Santino andre. 3-D [id number] imaging is performed. Source images are reviewed on the computer in the axi al plane. Reconstructed images rotating on the computer are reviewed. FINDINGS: The internal carotid arteries bifurcate normally into A1 and M1 segments. The A2 segments are normal. Middle cerebral artery branches are normal. Anterior communicating artery is patent. The right posterior communicating artery is patent. The left posterior communicating artery is patent. Vertebrobasilar arteries within the srjqv-oa-wane are normal. The left vertebral artery is dominant. Posterior cerebral vasculature is normal. No suspicious aneurysm or aneurysmal dilatation is eviden t. No obstructions are identified. No significant flow-limiting stenosis is evident. IMPRESSIONS: 1. NORMAL MRA VIEJAS OF [place].
--- NOTE | 2017-12-28 14:16 | MR ---
EXAMINATION TYPE: MR brain wo con DATE OF EXAM: 12/28/2017 COMPARISON: 02/25/2017 HISTORY: Headache CONTRAST: Performed utilizing 0 mL intravenous Gadavist gadolinium contrast. TECHNIQUE: Multiplanar, multiecho imaging on a 3.0 Teresa magnet is performed through the brain. Stud y is performed within 24 hours of arrival to the hospital. The craniovertebral junction is normal. The pituitary is normal. Diffusion-weighted imaging is performed. No abnormal hyperintensity is present to suggest an acute i ntracranial infarct or acute ischemic change. There are stable punctate subcortical and deep white matter changes. These are nonspecific but can be related to microvascular ischemic change. Migraine headaches changes could have these findings. Ventricles and sulci are appropriate for the patient age. Optic chiasm appears normal. There are norm al vascular flow voids within the visualized intracranial cerebral vasculature. IMPRESSIONS: 1. Scattered stable punctate white matter changes. Gliosis from migraine headaches and vasculitis and chronic white matter ischemic changes are considered more likely. Stability suggest metastasis to b e unlikely. Demyelination such as multiple sclerosis could be within the differential.
== END | disposition home or self-care (01) ==
LOC: RADMRIMAIN 13:08
PROVIDERS: ATTEND Family Medicine
DX: R90.82 White matter disease, unspecified (principal); R51 Headache
CPT/HCPCS: 70544; 70551

== ENCOUNTER → 2018-01-05 | Outpatient (CLI) | payer MEDICARE, OTHER ==
--- NOTE | 2018-01-06 08:20 | CT ---
EXAMINATION TYPE: CT angio neck DATE OF EXAM: 01/05/2018 HISTORY: headache COMPARISON: 12/05/2013 CT DLP: 2336.4 mGycm. Automated Exposure Control for Dose Reduction was Utilized. TECHNIQUE: CTA scan of the neck is performed with IV Contrast, patient injected with 65mL mL of Isov ue 370, axial images are obtained, coronal and sagittal reformatted images are reviewed. Three-D jose nstructed images are created on an independent workstation and reviewed. FINDINGS: Carotid/Vascular Structures: There is a three-vessel arch. Vertebral arteries appear codominant. Comm on carotid arteries bifurcate into internal and external carotid arteries normally. No focal stenosis is evident. Other: Degenerative changes are within the cervical spine. Degenerative disc changes are present. IMPRESSION: No significant abnormality is seen. Exam stable from 2013.
== END | disposition home or self-care (01) ==
LOC: RADCTMAIN 10:52
PROVIDERS: ATTEND Family Medicine
DX: R51 Headache (principal)
CPT/HCPCS: 70498; Q9967

== ENCOUNTER → 2018-02-02 | Outpatient (CLI) | payer MEDICARE, OTHER ==
[2018-02-02 12:06] LABS: Basophils # (A) 0.1 k/uL (0-0.2); Basophils % (A) 1 %; Eosinophils # (A) 0.2 k/uL (0-0.7); Eosinophils % (A) 3 %; HCT 44.1 % (34.0-46.0); HGB 14.8 gm/dL (11.4-16.0); Lymphocytes # (A) 1.6 k/uL (1.0-4.8); Lymphocytes % (A) 31 %; MCHC 33.6 g/dL (31.0-37.0); MCV 92.2 fL (80.0-100.0); Mean Platelet Volume 6.7; Monocytes # (A) 0.3 k/uL (0-1.0); Monocytes % (A) 6 %; Neutrophils # (A) 2.9 k/uL (1.3-7.7); Neutrophils % (A) 56 %; Platelet Count 243 k/uL (150-450); RBC 4.78 m/uL (3.80-5.40); RDW 12.4 % (11.5-15.5); WBC 5.1 k/uL (3.8-10.6)
[2018-02-02 12:29] LABS: ALT 20 U/L (9-52); AST 18 U/L (14-36); Alkaline Phosphatase 53 U/L (38-126); Anion Gap 7 mmol/L; Blood Urea Nitrogen 16 mg/dL (7-17); Calcium 9.6 mg/dL (8.4-10.2); Carbon Dioxide 26 mmol/L (22-30); Chloride 106 mmol/L (98-107); Glucose 98 mg/dL (74-99); Potassium 4.5 mmol/L (3.5-5.1); Sodium 139 mmol/L (137-145); Total Bilirubin 0.7 mg/dL (0.2-1.3); Total Protein 7.2 g/dL (6.3-8.2)
[2018-02-02 12:41] LABS: T4, Free (Free Thyroxine) 0.78 ng/dL (0.78-2.19)
[2018-02-02 14:13] LABS: Erythrocyte Sedimentation Rate 7 mm/hr (0-20)
[2018-02-02 15:57] LABS: Iron Saturation 44.56 (12.00-45.00)
[2018-02-02 16:06] LABS: Vitamin D 25 Hydroxy 36.1 ng/mL (30.0-100.0)
[2018-02-02 16:10] LABS: Folate, Serum 20.9 ng/mL
[2018-02-02 19:14] LABS: Hemoglobin A1C 4.9 % (4.0-6.0)
== END | disposition home or self-care (01) ==
LOC: LABWHC1 10:53
PROVIDERS: ATTEND Family Medicine
DX: R94.6 Abnormal results of thyroid function studies (principal); R76.8 Other specified abnormal immunological findings in serum; R13.13 Dysphagia, pharyngeal phase; K14.8 Other diseases of tongue; R20.2 Paresthesia of skin
CPT/HCPCS: 36415; 80053; 82306; 82607; 82728; 82746; 83036; 83540; 83550; 84439; 84443; 84481; 85025; 85652

== ENCOUNTER → 2018-03-28 | Outpatient (CLI) | payer MEDICARE, OTHER ==
--- NOTE | 2018-03-28 12:22 | CT ---
EXAMINATION TYPE: CT abdomen pelvis w con DATE OF EXAM: 03/28/2018 COMPARISON: 08/22/2016 HISTORY: 53-year-old female Stomach and pelvic pains, diarrhea, constipation, bloating TECHNIQUE: Contiguous axial scanning of the abdomen and pelvis following administration of 100 ml Iso lili 300 IV contrast. Delayed images through the kidneys and coronal/sagittal reconstructions perform ed. CT DLP: 804.9 mGycm Automated exposure control for dose reduction was used. FINDINGS: Heart normal size without pericardial effusion. Lung bases clear without pleural effusion. Small hiatal hernia. Liver mildly enlarged at 19.9 cm. Subcentimeter hypodensity right liver lobe too small for accurate C T characterization, likely cyst, axial image 26. Gallbladder not seen, likely surgically absent. Adrenal glands, spleen, and pancreas appear within no rmal limits. 2.0 cm cyst upper to midpole right kidney. Nonobstructing 1 cm lower pole right renal calculus and 5 mm in the left lower pole. Symmetric uptake and excretion of contrast from both kidneys. No dilated small bowel, free fluid, or free air. No mesenteric or retroperitoneal lymphadenopathy. Normal appendix. Oral contrast progressed to the rectum. Scattered mild stool burden. Mild diverticul ar change at the proximal sigmoid which is redundant. Bladder is urine distended. Uterus is anteverted measuring 10.9 cm. Size suggests that the patient is not postmenopausal. Both ovaries are visualized with a dominant follicle or functional cyst measurin g 2.0 cm on the right and 1.4 cm on the left. No abnormal fluid collection pelvis. Multiple pelvic ph leboliths. No pelvic lymphadenopathy. Bones: Post surgical changes of L5-S1 posterior and interbody fusion. Stable bone island medial right iliac bone adjacent to the SI joint. No osseous destructive process. IMPRESSION: 1. A NONOBSTRUCTIVE CALCULUS IN EACH KIDNEY MEASURING 1 CM ON THE RIGHT AND 5 MM ON THE LEFT. 2. VERY MILD DIVERTICULAR CHANGE ALONG THE PROXIMAL SIGMOID. NO EVIDENCE FOR ACUTE DIVERTICULITIS. 3. SMALL HIATAL HERNIA.
== END ==
LOC: RADCTMAIN 08:02
PROVIDERS: ATTEND Family Medicine
DX: N20.0 Calculus of kidney (principal); K57.32 Diverticulitis of large intestine without perforation or abscess without bleeding; K44.9 Diaphragmatic hernia without obstruction or gangrene
CPT/HCPCS: 74177; Q9967

== ENCOUNTER 2018-06-28 09:25 | Day surgery (SDC) | payer MEDICARE, OTHER ==
[2018-06-24 11:06] VITALS: BMI 28.8
[~2018-06-28 09:25] MED LIST changes: -ALPRAZolam 0.25 MG TAB PO PRN; -ALPRAZolam 0.5 MG TAB PO PRN; -ASPIRIN 325 MG TAB PO STA; -ATORVASTATIN 80 MG TAB PO STA; +LACTATED RINGERS 1,000 ML IV SCH; +LIDOCAINE 1% 20 ML VIAL (10MG/ML) FOR IV START INTRADERMA ONE; -NITROGLYCERIN SL TABS 0.4 MG TAB SUBLINGUAL PRN; -SODIUM CHLORIDE 0.9% 1,000 ML in EMPTY BAG 1 BAG IV ONE
[2018-06-28 10:21] VITALS: RESP 16; TEMP 97.9
[2018-06-28] MEDS ORDERED: fentaNYL (PF) 50 MCG/ML 2 ML AMP ONE (10:49)
[2018-06-28] MEDS ORDERED: MIDAZOLAM 2 MG/2 ML VIAL ONE (10:49)
[2018-06-28] MEDS ORDERED: PROPOFOL 10 MG/ML 20 ML VIAL IV ONE (10:49)
[2018-06-28 11:43] VITALS: BP 100/67; PULSE 72
--- NOTE | 2018-06-28 12:02 | P.PCN ---
Date of Procedure: 06/28/18 Procedure(s) Performed: Procedures: 1. Esophagogastroduodenoscopy and biopsy. 2. Colonoscopy and biopsy. Preoperative diagnosis: Epigastric pain and rectal bleeding. Postoperative diagnosis: 1. Very small sliding hiatal hernia with no obvious esophagitis or complicated reflux disease. 2. Mild antral gastritis. 3. Multiple biopsies obtained from the duodenum, antrum and esophagus. 4. Colon and terminal ileum within normal limits. 5. Biopsies obtained from the terminal ileum and right colon. Preparation: HalfLytely prep. Sedation: Was provided by anesthesia. Brief clinical history: The patient is a 53-year-old female who I have evaluated in the office earlier this month for burning abdominal pain, epigastric and atypical chest pains as well as bleeding per rectum and change in bowel habits. Procedure: With the patient on her left lateral decubitus position and after informed consent and adequate sedation, I passed the Olympus-GIF a 190 video upper endoscope through the cricopharyngeus down the esophagus. GE junction was around 40 cm from the incisors and there was a very small sliding hiatal hernia less than 1 cm. The esophagus did not show evidence od esophagitis or complicated reflux disease. The endoscope was then passed into the stomach which was insufflated with air and inspected in detail including the retroflex view in the cardia. There was some mottling and erythema in the antrum but no ulcers or erosions. Pyloric channel, duodenal bulb, post bulbar area and descending duodenum appeared within normal limits. Because of her symptoms, I obtained biopsies from the duodenum, antrum and esophagus then the endoscope was withdrawn and I proceeded to do colonoscopy. Perianal area did not show any fissures or fistulas. There were no masses felt on digital rectal examination. The Olympus CFH 190L video colonoscope was then inserted in the rectum in the usual fashion and advanced to the cecum. I intubated the ileocecal valve and examined the terminal ileum. Terminal ileum and colon appeared healthy with no edema, erythema, friability, ulceration, exudation or spontaneous bleeding. No polyps or tumors were seen. There was occasional small diverticular orifice seen in the sigmoid. I retroflexed the endoscope in the rectum before the endoscope was withdrawn. I obtained biopsies from the terminal ileum and right colon because of her symptoms. The patient tolerated the procedure well. Plan: The patient was reassured. Will await biopsy results and make further plans based on her course and biopsy results. I will keep you updated on her progress.
== END 2018-06-28 12:33 | disposition home or self-care (01) ==
LOC: ORWHC2ENDO 09:25
DX: K29.50 Unspecified chronic gastritis without bleeding (principal); K21.0 Gastro-esophageal reflux disease with esophagitis; K44.9 Diaphragmatic hernia without obstruction or gangrene; K57.30 Diverticulosis of large intestine without perforation or abscess without bleeding; E07.9 Disorder of thyroid, unspecified; Z79.890 Hormone replacement therapy; Z79.891 Long term (current) use of opiate analgesic; Z87.891 Personal history of nicotine dependence
CPT/HCPCS: 88305; 45380; 43239; J2250; J3010; J2704

== ENCOUNTER → 2019-01-13 | Outpatient (CLI) | payer MEDICARE, OTHER ==
--- NOTE | 2019-01-13 09:49 | MR ---
EXAMINATION TYPE: MR brain wo/w con DATE OF EXAM: 01/13/2019 COMPARISON: Prior brain MRI 02/25/2017, 12/28/2017 HISTORY: Headache / Paresthesia of skin TECHNIQUE: Multiplanar, multisequence images of the brain and brainstem is performed without and with IV contras t, utilizing 7 mL intravenous Gadavist . FINDINGS: Diffusion weighted images demonstrate no evidence of a recent infarct or other diffusion ab normality. There is no extra-axial fluid collection or significant interval change in white matter s ignal abnormality. Scattered hyperintensities are present on inversion recovery T2-weighted sequence s within the subcortical, juxtacortical, periventricular white matter similar to prior exam. Approxim ately 30 lesions are present. Left frontal lesion towards the convexity on axial image #27 measures 4 mm in size. The ventricular system and cisternal spaces are normal in size and appearance. The brai n volume is age appropriate. Midline structures demonstrate normal morphology. The craniocervical junction appears within normal limits. Post contrast images demonstrate no abnormal enhancement. The dural venous sinuses appear pa tent. The visualized sinuses are clear and the globes are intact. IMPRESSION: Findings similar to prior exam, possible slight progression since prior exam of 7 accounting for differences in technique. Nonspecific white matter demyelination. Consider multiple sclerosis, migraine headaches, hypertension, vasculitis, Lyme disease, chronic small vessel ischemic changes within the differential.
== END | disposition home or self-care (01) ==
LOC: RADMRIMAIN 08:36
PROVIDERS: ATTEND Family Medicine
DX: G35 Multiple sclerosis (principal); G43.909 Migraine, unspecified, not intractable, without status migrainosus; I10 Essential (primary) hypertension; I67.7 Cerebral arteritis, not elsewhere classified; I67.82 Cerebral ischemia; A69.20 Lyme disease, unspecified
CPT/HCPCS: 70553; A9585

== ENCOUNTER → 2019-02-02 | Outpatient (CLI) | payer MEDICARE, OTHER ==
--- NOTE | 2019-02-02 14:12 | US ---
EXAMINATION TYPE: US pelvic complete DATE OF EXAM: 02/02/2019 COMPARISON: CT 2018 CLINICAL HISTORY: R10.2 Pelvic pain. TECHNIQUE: Transabdominal sonographic images of the pelvis were acquired. Date of LMP: 2012 ablation EXAM MEASUREMENTS: Uterus: 8.8 x 3.3 x 5.0 cm Endometrial Stripe: 0.3 cm Right Ovary: 1.8 x 1.7 x 2.5 cm Left Ovary: 2.4 x 1.1 x 2.6 cm 1. Uterus: Anteverted nabothian cysts 2. Endometrium: 0.3cm 3. Right Ovary: Dominant follicle 1.4 x 1.3 x 0.9 cm 4. Left Ovary: wnl Spectral, color and waveform doppler imaging shows good arterial and venous flow within the ovaries ; there is no evidence for ovarian torsion. 5. Bilateral Adnexa: wnl 6. Posterior cul-de-sac: wnl IMPRESSION: No evidence of endometrial thickening. Physiologic follicular changes of the ovaries. Unr emarkable exam.
== END | disposition home or self-care (01) ==
LOC: RADUSWWP 12:55
PROVIDERS: ATTEND Obstetrics & Gynecology
DX: R10.2 Pelvic and perineal pain (principal)
CPT/HCPCS: 76856

== ENCOUNTER → 2019-02-27 | Outpatient (CLI) | payer MEDICARE, OTHER ==
[2019-02-27 16:27] LABS: Appearance,CSF Clear; CSF Tube Number 2; Nucleated Cells, CSF 0 u/L (0-5); Red Blood Cell,CSF 0 u/L (0-10); Total Protein,CSF 35 mg/dL (12-60)
[2019-03-01 11:40] LABS: IgG - CSF 1.4 mg/dL (0.0 - 3.4); IgG/Albumin Index (CSF) 0.45 (0.00 - 0.77)
== END | disposition home or self-care (01) ==
LOC: LABWHC1 08:18
PROVIDERS: ATTEND Nurse Practitioner Family
DX: G35 Multiple sclerosis (principal); R51 Headache; R41.3 Other amnesia; R90.89 Other abnormal findings on diagnostic imaging of central nervous system
CPT/HCPCS: 36415; 82040; 82042; 82164; 82784; 83873; 83916; 84157; 87801; 88108; 89050

== ENCOUNTER → 2019-05-31 | Outpatient (CLI) | payer MEDICARE, OTHER ==
[2019-05-31 18:32] LABS: T4, Free (Free Thyroxine) 1.5 ng/dL (0.80-1.80)
== END ==
LOC: LABWHC1 10:00
PROVIDERS: ATTEND Internal Medicine
DX: E03.9 Hypothyroidism, unspecified (principal)
CPT/HCPCS: 36415; 84439; 84443

== ENCOUNTER → 2019-10-06 | Outpatient (CLI) | payer MEDICARE, OTHER | END | disposition home or self-care (01) | LOC: LABWHC1 09:11 | PROVIDERS: ATTEND Physical Medicine & Rehabilitation | DX: Z11.59 Encounter for screening for other viral diseases (principal) ==